=== PATIENT | female | born 1965 | race American Indian/Alaskan Native ===

== ENCOUNTER 2018-04-29 15:16 | Inpatient (IN) | payer OTHER ==
--- NOTE | 2018-04-29 15:27 | EDPD ---
HPI Stroke - General Time Seen by Provider: 04/29/18 15:20 Historian: Patient, EMS - History of Present Illness Narrative History of Present Illness (Free Text): 04/29/18 15:28 Patient is a 52 year old female whose past medical history includes CVA, who presents to the emergency department by EMS for possible seizure/stroke. EMS reports that the patient was last well at 14:30 today and was getting an EEG. At 15:00 she started visibly shaking, slurred speech, and right sided weakness. Patient reports that she subsequently couldn't walk. SHe normally walks with a cane. Neurologist: Dr.Vinod Purdy. Date:: 04/29/18 Onset:: Just prior to presenting Family/Social History - Family/Social History Family History: Non-Contributory Allergies/Home Meds Allergies/Adverse Reactions: Allergies No Known Allergies Allergy (Verified 04/29/18 15:28) Medical Decision Making ED Course and Treatment: Impression: Differential Diagnosis included but are not limited to: Plan: -- Reassess and disposition Prior Visits: Notes and results from previous visits were reviewed. Patient was last seen in the Emergency department on . Progress Notes: 04/29/18 15:31 - RAD Interpretation Radiology Orders: 04/29/18 15:21 CTA HEAD/NECK CODE STROKE [CT] Stat HEAD W/O (CODE STROKE) [CT] Stat CHEST PORTABLE [RAD] Stat - Medication Orders Current Medication Orders: Sodium Chloride (Sodium Chloride 0.9%) 1,000 mls @ 100 mls/hr IV .Q10H ROXANNA
[2018-04-29] MEDS ORDERED: Iohexol 350 MG/100 ML VIAL ONE (15:32)
--- NOTE | 2018-04-29 15:32 | CT ---
Date of service: 04/29/2018 PROCEDURE: CT HEAD WITHOUT CONTRAST. HISTORY: Code Stroke COMPARISON: None available. TECHNIQUE: Axial computed tomography images were obtained through the head/brain without intravenous contrast. Radiation dose: Total exam DLP = 870 mGy-cm. This CT exam was performed using one or more of the following dose reduction techniques: Automated exposure control, adjustment of the mA and/or kV according to patient size, and/or use of iterative reconstruction technique. FINDINGS: HEMORRHAGE: No intracranial hemorrhage. BRAIN: No mass effect or edema. No atrophy or chronic microvascular ischemic changes. VENTRICLES: Unremarkable. No hydrocephalus. CALVARIUM: Unremarkable. PARANASAL SINUSES: Unremarkable as visualized. No significant inflammatory changes. MASTOID AIR CELLS: Unremarkable as visualized. No inflammatory changes. OTHER FINDINGS: None. IMPRESSION: No acute findings
--- NOTE | 2018-04-29 15:43 | ED PDOC ---
Arrival/HPI - General Chief Complaint: Weakness/Neurological Deficit Time Seen by Provider: 04/29/18 15:20 Historian: Patient, EMS EM Caveat: Acuity of Condition - Critical Care Critical Care Minutes: 30 minutes Critical Care Time: Excluding Proc Time - History of Present Illness Narrative History of Present Illness (Text): 04/29/18 15:36 Patient is a 52 year old female whose past medical history includes CVA, who presents to the Emergency department by EMS for possible seizure/stroke. As per EMS patient was last well at 14:30 and was getting an EEG. At 15:00 she started visibly shaking and developing slurred speech and right sided weakness. Patient reports that she subsequently couldn't walk. She normally walks with a cane. Futher hx limited by slurred speech. Time/Duration: Prior to Arrival Symptom Onset: Sudden Past Medical History - Provider Review Nursing Documentation Reviewed: Yes - Infectious Disease Hx of Infectious Diseases: None - Neurological HX Cerebrovascular Accident: Yes Hx Seizures: Yes - Psychiatric Hx Substance Use: No Family/Social History - Physician Review Nursing Documentation Reviewed: Yes Family/Social History: No Known Family HX Smoking Status: Unknown If Ever Smoked Hx Alcohol Use: No Hx Substance Use: No Allergies/Home Meds Allergies/Adverse Reactions: Allergies No Known Allergies Allergy (Verified 04/29/18 16:03) Review of Systems - Review of Systems Systems not reviewed;Unavailable: Acuity of Condition Neurological: Speech Changes, Other (right sided weakness) Physical Exam Vital Signs Reviewed: Yes Vital Signs Temp Pulse Resp BP 04/29/18 17:00 98.8 F 82 22 133/90 04/29/18 16:46 99 F 79 22 154/75 H 04/29/18 16:30 99.4 F 84 20 157/80 H Temperature: Afebrile Blood Pressure: Hypertensive Pulse: Regular Respiratory Rate: Normal Appearance: Positive for: Well-Appearing Mental Status: Positive for: Alert and Oriented X 3 - Systems Exam Head: Present: Atraumatic, Normocephalic Pupils: Present: PERRL Extroacular Muscles: Present: EOMI Conjunctiva: Present: Normal Mouth: Present: Moist Mucous Membranes Neck: Present: Normal Range of Motion Respiratory/Chest: Present: Clear to Auscultation, Good Air Exchange. No: Respiratory Distress, Accessory Muscle Use Cardiovascular: Present: Regular Rate and Rhythm, Normal S1, S2. No: Murmurs Abdomen: No: Tenderness, Distention, Peritoneal Signs Back: Present: Normal Inspection Upper Extremity: Present: Normal Inspection, Normal ROM. No: Cyanosis, Edema Lower Extremity: Present: Other (Normal strength to left lower extremity. RLE: muscle twitch visible but cannot lift leg off stretcher.). No: Edema, Normal ROM Neurological: Present: GCS=15, Other (Left facial droop, slurred speech) Skin: Present: Warm, Dry, Normal Color. No: Rashes Psychiatric: Present: Alert, Oriented x 3, Normal Insight, Normal Concentration Medical Decision Making ED Course and Treatment: 04/29/18 15:27 Impression: Patient is a 52 year old female who was brought by EMS for stroke evaluation. Differential Diagnosis included but are not limited to: Plan: --CTA and Head CT --EKG -- Labs --cardiac enzymes --blood work --chest x-ray --IV fluids --Aspirin -- Reassess and disposition Progress Notes: 04/29/18 15:15 Patient immediately evalauted and code Stroke called. 04/29/18 15:18 Discussed case with , who is aware of patient and states that if it is a seizure then she isn't a TPA candidate. Requesting CT and CTA. 04/29/18 15:33 called and reports that patient was hooked up on EEG when she started developing symptoms of slurred speech and leg weakness and EEG findings don't show seizure. 04/29/18 16:[address] Edmond and due to aphasia and weakness, decision made to give TPA. Weakness to R leg improving but due to aphasia and droop, decision still made to give TPA 04/29/18 16:[address] without contrast: Creator : Liu Worthington MD HISTORY: Code Stroke COMPARISON: None available. TECHNIQUE: Axial computed tomography images were obtained through the head/brain without intravenous contrast. Radiation dose: Total exam DLP = 870 mGy-cm. This CT exam was performed using one or more of the following dose reduction techniques: Automated exposure control, adjustment of the mA and/or kV according to patient size, and/or use of iterative reconstruction technique. FINDINGS: HEMORRHAGE: No intracranial hemorrhage. BRAIN: No mass effect or edema. No atrophy or chronic microvascular ischemic changes. VENTRICLES: Unremarkable. No hydrocephalus. CALVARIUM: Unremarkable. PARANASAL SINUSES: Unremarkable as visualized. No significant inflammatory changes MASTOID AIR CELLS: Unremarkable as visualized. No inflammatory changes. OTHER FINDINGS: None. IMPRESSION: No acute findings Chest X-ray: Creator : Gary Duque MD HISTORY: Code Stroke COMPARISON: None available. FINDINGS: LUNGS: Clear. PLEURA:No pneumothorax or pleural fluid seen. CARDIOVASCULAR:Normal. OSSEOUS STRUCTURES: No significant abnormalities. VISUALIZED UPPER ABDOMEN: Normal. OTHER FINDINGS: None. IMPRESSION: No active disease. 04/29/18 CTA unable to be preformed due to IV access. Decision made with neurologist to administer TPA when IV access is obtained instead of sending her back for CTA. 04/29/18 16:51 EKG shows NSR at 78 bpm with LVH and nonspecific ST changes. Interpreted by me. 04/29/18 16:51 Location Director at bedside. 04/29/18 16:53 Patient accepted by hospitalist. - Lab Interpretations Lab Results: 04/29/18 14:30 04/29/18 14:30 Lab Results 04/29/18 14:30: Sodium 145, Potassium 4.2, Chloride 106, Carbon Dioxide 26, Anion Gap 18, BUN 13, Creatinine 0.9, Est GFR ( Amer) > 60, Est GFR (Non- Af Amer) > 60, Random Glucose 84, Calcium 9.3, Total Bilirubin 0.4, AST 29, ALT 31, Alkaline Phosphatase 99, Troponin I 0.01, Total Protein 8.0, Albumin 4.6, Globulin 3.5, Albumin/Globulin Ratio 1.3, Triglycerides 102, Cholesterol 130, LDL Cholesterol Direct 51, HDL Cholesterol 55 04/29/18 14:30: PT 11.4, INR 1.00, APTT 32.5 04/29/18 14:30: WBC 7.7, RBC 5.09, Hgb 12.7, Hct 39.3, MCV 77.2 L, MCH 25.0, MCHC 32.3, RDW 15.6 H, Plt Count 367, MPV 9.9, Gran % 53.7, Lymph % (Auto) 35.4 H, [place] % (Auto) 8.3 H, Eos % (Auto) 2.1, Baso % (Auto) 0.5, Gran # 4.12, Lymph # (Auto) 2.7, [place] # (Auto) 0.6, Eos # (Auto) 0.2, Baso # (Auto) 0.04 I have reviewed the lab results: Yes - RAD Interpretation Radiology Orders: 04/29/18 15:21 CTA HEAD/NECK CODE STROKE [CT] Stat HEAD W/O (CODE STROKE) [CT] Stat CHEST ONE VIEW [RAD] Stat 04/29/18 17:02 MRI CODE STROKE/CODE [place]ANDA [MRI] Stat Floral Designer: Radiologist - EKG Interpretation Interpreted by ED Physician: Yes Type: 12 lead EKG - Medication Orders Current Medication Orders: Sodium Chloride (Sodium Chloride 0.9%) 1,000 mls @ 100 mls/hr IV .Q10H ROXANNA Alteplase, Recombinant (Activase 100 Mg Inj) 81 mls @ 81 mls/hr IV ONCE ONE Stop: 04/29/18 17:29 Pantoprazole Sodium (Protonix Ec Tab) 40 mg PO 0600 ROXANNA Discontinued Medications Alteplase, Recombinant (Activase 100 Mg Inj) 9 mg IV ONCE ONE Stop: 04/29/18 16:16 Aspirin (Aspirin Supp) 300 mg RC STAT STA Stop: 04/29/18 15:42 Last Admin: 04/29/18 15:53 Dose: 300 mg MAR Pain/Vitals Document 04/29/18 15:53 LA (Rec: 04/29/18 15:53 JOSE EDUARDO [id number]) Pain Reassessment Is This A Pain ReAssessment? No Sleep Is patient sleeping during reassessment? No Presence of Pain Presence of Pain No NIHSS Scale ([place]) Time Performed: 15:47 - How Severe is the Stoke Baseline Level of Consciousness: 0=Alert LOC to Questions: 0=Both comments correct LOC to commands: 0=Obeys both correctly Best Gaze: 0=Normal Visual: 0=No visual loss Facial: 1=Minor asymmetry Motor Arm - Left: 0=No drift Motor Arm - Right: 0=No drift Motor Leg - Left: 0=No drift Motor Leg - Right: 3=No effort against gravity (falls immediately) Limb Ataxia: 0=Absent Sensory: 0=Normal Best Language: 1=Mild to moderate aphasia Dysarthia: 1=Mild to moderate slurring Extinction & Inattention (Neglect): 0=Normal, no object Score: 6 Risk Level: Mod Stroke Risk NIHSS Scale([place]) 2 Time Performed: 17:14 - How Severe is the Stoke Baseline Level of Consciousness: 0=Alert LOC to Questions: 0=Both comments correct LOC to commands: 0=Obeys both correctly Best Gaze: 0=Normal Visual: 0=No visual loss Facial: 1=Minor asymmetry Motor Arm - Left: 0=No drift Motor Arm - Right: 0=No drift Motor Leg - Left: 0=No drift Motor Leg - Right: 1=Drift before 5 sec Limb Ataxia: 0=Absent Sensory: 0=Normal Best Language: 1=Mild to moderate aphasia Dysarthia: 1=Mild to moderate slurring Extinction & Inattention (Neglect): 0=Normal, no object Score: 4 Risk Level: Minor Stroke Risk - Scribe Statement The provider has reviewed the documentation as recorded by the Scribsally Perry Provider Scribe Attestation: All medical record entries made by the Scribe were at my direction and personally dictated by me. I have reviewed the chart and agree that the record accurately reflects my personal performance of the history, physical exam, medical decision making, and the department course for this patient. I have also personally directed, reviewed, and agree with the discharge instructions and disposition. Disposition/Present on Arrival - Present on Arrival Any Indicators Present on Arrival: No History of DVT/PE: No History of Uncontrolled Diabetes: No Urinary Catheter: No History of Decub. Ulcer: No History Surgical Site Infection Following: None - Disposition Have Diagnosis and Disposition been Completed?: Yes Diagnosis: CVA (cerebral vascular accident) Disposition: HOSPITALIZED Disposition Time: 16:30 Patient Plan: Admission, ICU Patient Problems: Current Active Problems Problem Status Onset CVA (cerebral vascular accident) Acute Condition: FAIR Forms: [employer] (Member[employer]) ([place])
[2018-04-29 16:06] VITALS: BMI 41.8
--- NOTE | 2018-04-29 16:06 | RAD ---
Date of service: 04/29/2018 PROCEDURE: CHEST RADIOGRAPH, 1 VIEW HISTORY: Code Stroke COMPARISON: None available. FINDINGS: LUNGS: Clear. PLEURA: No pneumothorax or pleural fluid seen. CARDIOVASCULAR: Normal. OSSEOUS STRUCTURES: No significant abnormalities. VISUALIZED UPPER ABDOMEN: Normal. OTHER FINDINGS: None. IMPRESSION: No active disease.
--- NOTE | 2018-04-29 16:14 | CP.PCM.CON ---
History of Present Illness - History of Present Illness History of Present Illness: 52 yr old woman with pmh of epilepsy, on keppra 500 mg sadi is a patient of dr lopezoors comes in [facility] with one hour onset of dysarthria and right sided weakness that started about one hour ago at 2:30 pm. Miss reed was in dr fernando vargas and was obtaining an eeg when she developedan acute onset of dysarthria and weakness of her rogh side. Upon arrival bto the ER, symptoms continued. PMH PSH FH/SH ALL: Past Patient History - Infectious Disease Hx of Infectious Diseases: None - Past Social History Smoking Status: Unknown If Ever Smoked - NEUROLOGICAL HX Cerebrovascular Accident: Yes Hx Seizures: Yes - PSYCHIATRIC Hx Substance Use: No - SURGICAL HISTORY Hx Surgeries: No Meds Allergies/Adverse Reactions: Allergies Allergy/AdvReac Type Severity Reaction Status Date / Time No Known Allergies Allergy Verified 04/29/18 15:28 - Medications Medications: Current Medications Sodium Chloride (Sodium Chloride 0.9%) 1,000 mls @ 100 mls/hr IV .Q10H ROXANNA
[2018-04-29 16:15] LABS: BASO # 0.04 K/mm3 (0.0-2.0); BASO % 0.5 % (0.0-3.0); EOS # 0.2 (0.0-0.7); EOS % 2.1 % (1.5-5.0); GRAN # 4.12 (1.4-6.5); GRAN % 53.7 % (50.0-68.0); HEMOGLOBIN 12.7 g/dL (12.0-16.0); LYMPH # 2.7 (1.2-3.4); LYMPH % 35.4 % (22.0-35.0); MEAN CELL VOLUME 77.2 fl (80.0-105.0); MEAN CORPUSCULAR HGB CONC 32.3 g/dl (31.0-37.0); MEAN PLATELET VOLUME 9.9 fl (7.0-11.0); MONO # 0.6 (0.1-0.6); MONO % 8.3 % (1.0-6.0); RBC 5.09 10^6/uL (3.5-6.1); RED CELL DISTRIBUTION WIDTH 15.6 % (11.5-14.5); WHITE BLOOD COUNT 7.7 10^3/ul (4.5-11.0)
[2018-04-29 16:18] LABS: ALB/GLOB RATIO 1.3 (1.1-1.8); ALBUMIN 4.6 g/dL (3.0-4.8); ALT/SGPT 31 U/L (7-56); AST/SGOT 29 U/L (14-36); BLOOD UREA NITROGEN 13 mg/dL (7-21); CALCIUM 9.3 mg/dL (8.4-10.5); GFR AFRICAN-AMERICAN > 60; GFR NON-AFRICAN AMERICAN > 60; HDL CHOLESTEROL 55 mg/dL (29-60)
[2018-04-29 16:19] LABS: PARTIAL THROMBOPLASTIN TIME 32.5 Seconds (25.1-36.5); PROTHROMBIN TIME 11.4 SECONDS (9.4-12.5)
[2018-04-29 16:28] LABS: LDL CHOLESTEROL 51 mg/dL (0-129)
[2018-04-29] MEDS: Sodium Chloride 0.9% 1,000 ML IV SCH (16:30)
[2018-04-29 16:31] LABS: TROPONIN I 0.01 ng/mL
[2018-04-29] MEDS ORDERED: Vitamins A & D Oint UD Foilpak TOP PRN (17:16)
[2018-04-29] MEDS ORDERED: Albuterol-Ipratrop 3 mg / 0.5 (3 ml) UD IH PRN (17:16)
--- NOTE | 2018-04-29 17:31 | CP.PCM.CON ---
History of Present Illness - History of Present Illness History of Present Illness: MICU Consult Note HPI Patient is 52yo female with PMHx of morbid obesity, ANGIE, CVA/TIA, HTN, presented to the ER with acute onset of slurred speech, dysarthria, facial droop and RLE weakness, that started at [address] Restrepo office while obtaining an EEG. Pt currently receiving tPA. Pt denies fever, chills, cough, chest pain, palpitations, MCNEILL, dizziness, NO other constitutional symptoms. Previous history of CVA/TIA in the past without any residual weakness/deficits. PMHx as above PSHx as above Meds as per EMR FHx NC Social denies smoking, EtOH, drug use, unemployed. Review of Systems - Review of Systems Review of Systems: As per HPI Past Patient History - Infectious Disease Hx of Infectious Diseases: None - Past Social History Smoking Status: Unknown If Ever Smoked - NEUROLOGICAL HX Cerebrovascular Accident: Yes Hx Seizures: Yes - PSYCHIATRIC Hx Substance Use: No - SURGICAL HISTORY Hx Surgeries: No Meds Allergies/Adverse Reactions: Allergies Allergy/AdvReac Type Severity Reaction Status Date / Time No Known Allergies Allergy Verified 04/29/18 16:03 - Medications Medications: Current Medications Albuterol/Ipratropium (Duoneb 3 Mg/0.5 Mg (3 Ml) Ud) 3 ml IH Q2H PRN PRN Reason: Shortness of Breath Sodium Chloride (Sodium Chloride 0.9%) 1,000 mls @ 100 mls/hr IV .Q10H ROXANNA Alteplase, Recombinant (Activase 100 Mg Inj) 81 mls @ 81 mls/hr IV ONCE ONE Stop: 04/29/18 17:29 Levetiracetam (Keppra 500mg Ivpb) 500 mg in 100 mls @ 400 mls/hr IVPB Q12 ROXANNA Insulin Human Regular (Humulin R Low) 0 units SC ACHS ROXANNA PRN Reason: Protocol Pantoprazole Sodium (Protonix Inj) 40 mg IVP DAILY ROXANNA Vitamin A (Vitamin A & D Oint Ud Foilpak) 1 ea TOP Q2 PRN PRN Reason: Dry mouth Physical Exam - Constitutional Appears: Non-toxic, No Acute Distress - Head Exam Head Exam: NORMAL INSPECTION - Eye Exam Eye Exam: Normal appearance - ENT Exam ENT Exam: Mucous Membranes Moist - Respiratory Exam Respiratory Exam: Clear to Auscultation Bilateral, NORMAL BREATHING PATTERN - Cardiovascular Exam Cardiovascular Exam: REGULAR RHYTHM, +S1, +S2 - GI/Abdominal Exam GI & Abdominal Exam: Normal Bowel Sounds, Soft - Extremities Exam Extremities exam: Positive for: normal inspection - Neurological Exam Neurological exam: Alert, Oriented x3 Additional comments: Motor RUE/RLE 5/5, LLE 4/5, RLE 3/5 Sensory intact Results - Vital Signs Recent Vital Signs: Last Vital Signs Temp 99 F 04/29/18 17:15 Pulse 77 04/29/18 17:15 Resp 20 04/29/18 17:15 BP 132/89 04/29/18 17:15 Pulse Ox - Labs Result Diagrams: 04/29/18 14:30 04/29/18 14:30 Labs: Laboratory Results - last 24 hr 04/29/18 04/29/18 04/29/18 14:30 14:30 14:30 WBC 7.7 RBC 5.09 Hgb 12.7 Hct 39.3 MCV 77.2 L MCH 25.0 MCHC 32.3 RDW 15.6 H Plt Count 367 MPV 9.9 Gran % 53.7 Lymph % (Auto) 35.4 H [place] % (Auto) 8.3 H Eos % (Auto) 2.1 Baso % (Auto) 0.5 Gran # 4.12 Lymph # (Auto) 2.7 [place] # (Auto) 0.6 Eos # (Auto) 0.2 Baso # (Auto) 0.04 PT 11.4 INR 1.00 APTT 32.5 Sodium 145 Potassium 4.2 Chloride 106 Carbon Dioxide 26 Anion Gap 18 BUN 13 Creatinine 0.9 Est GFR ( Amer) > 60 Est GFR (Non-Af Amer) > 60 Random Glucose 84 Calcium 9.3 Total Bilirubin 0.4 AST 29 ALT 31 Alkaline Phosphatase 99 Troponin I 0.01 Total Protein 8.0 Albumin 4.6 Globulin 3.5 Albumin/Globulin Ratio 1.3 Triglycerides 102 Cholesterol 130 LDL Cholesterol Direct 51 HDL Cholesterol 55 Blood Type Antibody Screen BBK History Checked 04/29/18 14:30 WBC RBC Hgb Hct MCV MCH MCHC RDW Plt Count MPV Gran % Lymph % (Auto) [place] % (Auto) Eos % (Auto) Baso % (Auto) Gran # Lymph # (Auto) [place] # (Auto) Eos # (Auto) Baso # (Auto) PT INR APTT Sodium Potassium Chloride Carbon Dioxide Anion Gap BUN Creatinine Est GFR ( Amer) Est GFR (Non-Af Amer) Random Glucose Calcium Total Bilirubin AST ALT Alkaline Phosphatase Troponin I Total Protein Albumin Globulin Albumin/Globulin Ratio Triglycerides Cholesterol LDL Cholesterol Direct HDL Cholesterol Blood Type O POSITIVE Antibody Screen Negative BBK History Checked No verified bt Assessment & Plan - Assessment and Plan (Free Text) Assessment: 52yo female a/w acute CVA, receiving tPA Acute CVA receiving tPA ANGIE HTN Morbid Obesity Hx of CVA/TIA - awake, alert, in NAD, protecting airway Recommend: - supp o2 as needed, BIPAP at night - duonebs PRN - NO ID issues - BP control - NPO - speech swallow eval - ECHO - Lipid Panel, TSH, HgbA1C - neurology follow up - MRI brain - GI ppx - DVT ppx - Admit to MICU
--- NOTE | 2018-04-29 18:02 | CP.PCM.HP ---
<Mervin Caballero - Last Filed: 04/29/18 21:27> History of Present Illness - History of Present Illness History of Present Illness: CC: Right Sided Weakness/?CVA HPI: Ms. Preciado is a 52 year old female with a past medical history significant for previous CVA with residual RLE weakness, seizures, DM2, HTN, ANGIE , asthma, and vertigo who presented with right sided weakness, dysarthria and facial drooping that started at approximately 1430. Patient reports that she was in Dr. Purdy's office (Neurology) having an EEG when her entire body began "shaking". This lasted for a "few minutes" and afterwards patient was noted to have facial drooping on the right side and right lower extremity weakness worsened from her baseline. Patient denies any LOC or loss of bowl or bladder control during the event but endorses tongue biting. She denies any other symptoms including fever, chills, headache, changes in her vision, dysphagia, neck pain/stiffness, chest pain, palpitations, SOB, cough, wheezing, abdominal pain, N/V/D/C, melena, changes in urine output, skin changes, or any numbness/ tingling of any extremity. PMH: As stated above PSH: As stated above Family History: Non-Contributory Social History: Denies any tobacco, alcohol or illicit drug use Allergies: Penicillin Home Medications: As per MAR Present on Admission - Present on Admission Any Indicators Present on Admission: No Review of Systems - Review of Systems Review of Systems: As stated in the HPI, otherwise negative Past Patient History - Infectious Disease Hx of Infectious Diseases: None - Past Social History Smoking Status: Unknown If Ever Smoked - NEUROLOGICAL HX Cerebrovascular Accident: Yes Hx Seizures: Yes - PSYCHIATRIC Hx Substance Use: No - SURGICAL HISTORY Hx Surgeries: No Meds Allergies/Adverse Reactions: Allergies Allergy/AdvReac Type Severity Reaction Status Date / Time Penicillins Allergy Intermediate RASH Verified 09/23/17 07:01 Physical Exam - Constitutional Appears: Non-toxic, No Acute Distress - Head Exam Head Exam: ATRAUMATIC, NORMOCEPHALIC Additional comments: Right sided facial droop - Eye Exam Eye Exam: EOMI, Normal appearance, PERRL. absent: Conjunctival injection, Nystagmus, Periorbital swelling, Periorbital tenderness, Scleral icterus Pupil Exam: NORMAL ACCOMODATION, PERRL. absent: Fixed, Irregular, Miosis, Mydriatic, Unequal - ENT Exam ENT Exam: Mucous Membranes Moist, Normal External Ear Exam (Bilateral laceration on tongue consistent with ). absent: Mucous Membranes Dry, Normal Oropharynx - Neck Exam Neck exam: Positive for: Full Rom, Normal Inspection. Negative for: Lymphadenopathy, Meningismus, Tenderness, Thyromegaly - Respiratory Exam Respiratory Exam: Clear to Auscultation Bilateral, NORMAL BREATHING PATTERN. absent: Accessory Muscle Use, Chest Wall Tenderness, Decreased Breath Sounds, Prolonged Expiratory Phase, Rales, Rhonchi, Wheezes, Respiratory Distress, Stridor - Cardiovascular Exam Cardiovascular Exam: REGULAR RHYTHM, RRR, +S1, +S2. absent: Bradycardia, Tachycardia, Clicks, Diastolic murmur, Gallop, Irregular Rhythm, JVD, Rubs, +S4 , Systolic Murmur - GI/Abdominal Exam GI & Abdominal Exam: Normal Bowel Sounds, Soft. absent: Bruit, Diminished Bowel Sounds, Distended, Firm, Guarding, Hernia, Hyperactive Bowel Sounds, Hypoactive Bowel Sounds, Mass, Organomegaly, Pulsatile Mass, Rebound, Rigid, Tenderness - Extremities Exam Extremities exam: Positive for: normal capillary refill, pedal pulses present. Negative for: calf tenderness, full ROM (Decreased ROM in RLE), joint swelling, normal inspection, pedal edema, tenderness - Back Exam Back exam: FULL ROM, NORMAL INSPECTION. absent: CVA tenderness (L), CVA tenderness (R), muscle spasm, paraspinal tenderness, rash noted, tenderness, vertebral tenderness - Neurological Exam Neurological exam: Alert, Oriented x3 - Expanded Neurological Exam Expanded Patient oriented to: person, place, time Speech: Slurred Speech Cranial nerves: Facial Palsey w/Forehead Movement: Abnormal Right Neuro motor strength exam: Left Upper Extremity: 4, Right Upper Extremity: 4, Left Lower Extremity: 4, Right Lower Extremity: 2/1 - Psychiatric Exam Psychiatric exam: Normal Affect, Normal Mood - Skin Skin Exam: Dry, Intact, Normal Color, Warm Results - Vital Signs Recent Vital Signs: Last Vital Signs Temp 99 F 04/29/18 17:15 Pulse 77 04/29/18 17:15 Resp 20 04/29/18 17:15 BP 132/89 04/29/18 17:15 Pulse Ox - Labs Result Diagrams: 04/29/18 14:30 04/29/18 14:30 Labs: Laboratory Results - last 24 hr 04/29/18 04/29/18 04/29/18 14:30 14:30 14:30 WBC 7.7 RBC 5.09 Hgb 12.7 Hct 39.3 MCV 77.2 L MCH 25.0 MCHC 32.3 RDW 15.6 H Plt Count 367 MPV 9.9 Gran % 53.7 Lymph % (Auto) 35.4 H [place] % (Auto) 8.3 H Eos % (Auto) 2.1 Baso % (Auto) 0.5 Gran # 4.12 Lymph # (Auto) 2.7 [place] # (Auto) 0.6 Eos # (Auto) 0.2 Baso # (Auto) 0.04 PT 11.4 INR 1.00 APTT 32.5 Sodium 145 Potassium 4.2 Chloride 106 Carbon Dioxide 26 Anion Gap 18 BUN 13 Creatinine 0.9 Est GFR ( Amer) > 60 Est GFR (Non-Af Amer) > 60 Random Glucose 84 Calcium 9.3 Total Bilirubin 0.4 AST 29 ALT 31 Alkaline Phosphatase 99 Troponin I 0.01 Total Protein 8.0 Albumin 4.6 Globulin 3.5 Albumin/Globulin Ratio 1.3 Triglycerides 102 Cholesterol 130 LDL Cholesterol Direct 51 HDL Cholesterol 55 Blood Type Antibody Screen BBK History Checked 04/29/18 14:30 WBC RBC Hgb Hct MCV MCH MCHC RDW Plt Count MPV Gran % Lymph % (Auto) [place] % (Auto) Eos % (Auto) Baso % (Auto) Gran # Lymph # (Auto) [place] # (Auto) Eos # (Auto) Baso # (Auto) PT INR APTT Sodium Potassium Chloride Carbon Dioxide Anion Gap BUN Creatinine Est GFR ( Amer) Est GFR (Non-Af Amer) Random Glucose Calcium Total Bilirubin AST ALT Alkaline Phosphatase Troponin I Total Protein Albumin Globulin Albumin/Globulin Ratio Triglycerides Cholesterol LDL Cholesterol Direct HDL Cholesterol Blood Type O POSITIVE Antibody Screen Negative BBK History Checked No verified bt Assessment & Plan - Assessment and Plan (Free Text) Assessment: 52 year old female with a past medical history significant for previous CVA with residual RLE weakness, seizures, DM2, HTN, ANGIE, asthma, and vertigo who presented with right sided weakness, dysarthria and facial drooping that started at approximately 1430. Plan: 1. Dysarthria/?CVA -CT Head showed no intracranial abnormalities -Initial NIHSS score in ED: 3 -Given tPA in ED at approximately 1600 -CTA Head/Neck, Brain MRI and Echo pending -Swallow Study pending -NPO Diet -Fall and Aspiration precautions -ICU placement -Neurology and Cardiology consulted, all recommendations appreciated 2. History of Seizures -Keppra 500mg IV Q12 -Seizure precautions 3. History of DM2 -SSI-Low and Accuchecks Q6 -A1c pending 4. History of Asthma -Duonebs Q2 PRN GI Prophylaxis: Protonix DVT Prophylaxis: SCD's Patient seen and case discussed with attending, Dr. Jewell. Tien PGY2 - Date & Time Date: 04/29/18 Time: 21:38 <Yin Jewell - Last Filed: 04/30/18 08:44> Results - Vital Signs Recent Vital Signs: Last Vital Signs Temp 98.4 F 04/30/18 07:47 Pulse 69 04/30/18 07:47 Resp 16 04/30/18 07:47 BP 112/67 04/30/18 07:47 Pulse Ox 94 L 04/30/18 06:45 - Labs Result Diagrams: 04/29/18 14:30 04/29/18 14:30 Labs: Laboratory Results - last 24 hr 04/29/18 17:00 TSH 3rd Generation 5.38 H Attending/Attestation - Attestation I have personally seen and examined this patient.: Yes I have fully participated in the care of the patient.: Yes I have reviewed all pertinent clinical information: Yes Notes (Text): 04/30/18 08:40 Medical record note made by the resident after discussion with my direction and input after the patient was personally seen and examined by me. I have reviewed the chart and agree that the record accurately reflects by personal performance of the history, physical exam, data review, and medical decision-making, in the course for the patient. I have also personally directed the plan of care. 52 year old female with a past medical history significant for previous CVA with residual RLE weakness, seizures, DM2, HTN, ANGIE, asthma, and vertigo who presented with right sided weakness, dysarthria and facial drooping , patient was in her Neurologist office at that time.CT head was negative.Patient is getting TPA in ER.We will monitor Neuro check, will kepp patient NPO, we will get MRI of Brain, CTA of head and neck and Echo.We will hold antiplatelet for 24 hour. We will get speech and swallow evaluation.We will monitor blood pressure and blood sugars closely. Management plan was discussed in detail with patient. Education was provided.
[2018-04-29] MEDS: levETIRAcetam 500mg IVPB 500 MG/100 ML BAG IVPB SCH (21:20)
[2018-04-29] MEDS ORDERED: levETIRAcetam 500 MG in Sodium Chloride 0.9% 100 ML IV SCH (22:00)
[2018-04-29] MEDS ORDERED: Insulin Reg-LOW-Coverage SC SCH (22:00)
[2018-04-30] MEDS ORDERED: Pneumococcal 23-Valent Vaccine IM ONE (00:15)
[2018-04-30] MEDS: Sodium Chloride 0.9% 1,000 ML IV SCH ×2 (05:52→16:55)
[2018-04-30] MEDS ORDERED: Pantoprazole 40 mg EC Tab PO SCH (06:00)
[2018-04-30] MEDS: levETIRAcetam 500mg IVPB 500 MG/100 ML BAG IVPB SCH ×2 (09:30→21:14)
--- NOTE | 2018-04-30 09:40 | CP.PCM.PN ---
Subjective - Date & Time of Evaluation Date of Evaluation: 04/30/18 Time of Evaluation: 09:39 - Subjective Subjective: George Villatoro PGY 2 Neurology Progress Note for Dr. Ware Patient was seen and examined at bedside in ICU. she had MRI head/neck earlier this morning. She is unable to undergo CTA due to peripheral line issues per nursing staff. The patient states that her speech is getting better and that her motor skills are restored. Patient states that she had a CVA in 01/2017 and TIA in 04/2017 that left her with a right foot drop, but no other focal deficits. Her last seizure was in 01/2018, and she is on Keppra. She was in Dr. Purdy's office getting an EEG done when she felt her body shake and her jaw deviate to the right. she denied any preceding aura of headaches, lights, sounds or any other neurological symptoms. After EMS was called, she was moved to a chair and in the process noticed that her right leg was weak and could not support her, however, she states this felt different than her usual foot drop. Currently, she states she has a headache but denies any changes in hearing, dizziness, chest pain, shortness of breath, weakness. Objective - Vital Signs/Intake and Output Vital Signs (last 24 hours): Temp Pulse Resp BP Pulse Ox 98.4 F 69 16 112/67 94 L 04/30/18 07:47 04/30/18 07:47 04/30/18 07:47 04/30/18 07:47 04/30/18 06:45 Intake and Output: 04/30/18 04/30/18 06:59 18:59 Intake Total 1300 Output Total 400 Balance 900 - Medications Medications: Current Medications Acetaminophen (Tylenol 325mg Tab) 650 mg PO Q4H PRN PRN Reason: headache and pain Last Admin: 04/30/18 00:23 Dose: 650 mg Albuterol/Ipratropium (Duoneb 3 Mg/0.5 Mg (3 Ml) Ud) 3 ml IH Q2H PRN PRN Reason: Shortness of Breath Sodium Chloride (Sodium Chloride 0.9%) 1,000 mls @ 100 mls/hr IV .Q10H ROXANNA Last Admin: 04/30/18 05:52 Dose: 100 mls/hr Levetiracetam (Keppra 500mg Ivpb) 500 mg in 100 mls @ 400 mls/hr IVPB Q12 ROXANNA Last Admin: 04/30/18 09:30 Dose: 400 mls/hr Insulin Human Regular (Humulin R Low) 0 units SC Q6 ROXANNA PRN Reason: Protocol Last Admin: 04/30/18 00:00 Dose: Not Given Pantoprazole Sodium (Protonix Inj) 40 mg IVP DAILY [facility] Last Admin: 04/30/18 09:30 Dose: 40 mg Vitamin A (Vitamin A & D Oint Ud Foilpak) 1 ea TOP Q2 PRN PRN Reason: Dry mouth - Labs Labs: PT 11.4 SECONDS (9.4-12.5) 04/29/18 14:30 INR 1.00 04/29/18 14:30 APTT 32.5 Seconds (25.1-36.5) 04/29/18 14:30 - Constitutional Appears: Well, Non-toxic, No Acute Distress - Head Exam Head Exam: NORMAL INSPECTION - Eye Exam Eye Exam: EOMI, Normal appearance, PERRL - ENT Exam ENT Exam: Mucous Membranes Dry - Neck Exam Neck Exam: Full ROM, Normal Inspection - Respiratory Exam Respiratory Exam: NORMAL BREATHING PATTERN. absent: Rales, Rhonchi, Wheezes - Cardiovascular Exam Cardiovascular Exam: RRR, +S1, +S2 - GI/Abdominal Exam GI & Abdominal Exam: Soft. absent: Distended, Tenderness - Extremities Exam Extremities Exam: Full ROM, Normal Inspection. absent: Pedal Edema Additional comments: SCDs on b/l - Back Exam Back Exam: NORMAL INSPECTION - Neurological Exam Neurological Exam: Alert, Awake, CN II-XII Intact (grossly), Oriented x3. absent: Motor Sensory Deficit Neuro motor strength exam: Left Upper Extremity: 5, Right Upper Extremity: 5, Left Lower Extremity: 5, Right Lower Extremity: 5 (plantarflexion 0/5; dorsiflexion 4/5) Additional comments: no dysmetria noted dysarthria noted, but improved from prior exam - Psychiatric Exam Psychiatric exam: Normal Mood - Skin Skin Exam: Warm Assessment and Plan - Assessment and Plan (Free Text) Assessment: 52 year old female with a PMH of CVA/TIA (2016) with residual R foot drop, seizures (last in 01/2018), morbid obesity, HTN, ANGIE, asthma, and vertigo who presented with right sided weakness, dysarthria and facial drooping that started around 1430 while patient was at her neurologist's office for EEG. CODE STROKE was called, and patient underwent CT Head that showed no acute findings or evidence of bleed. Decision was made to administer tPA (90mg total), and infusion was started at around 1630. Patient was monitored overnight in ICU with no neurological changes noted. Patient is under bleeding precautions with strictly no IV draws, tubes, or line placement for 24 hrs; antiplatelets are also to be avoided. Plan: Acute CVA s/p tPA, symptoms improving - MRI head done today showing no acute intracranial abnormality. No evidence of an acute or early subacute infarction. Mild chronic microangiopathic changes. Mild cerebellar tonsillar ectopia. - MRA neck showed normal MR Angiography of the neck. - CT Head today at 1630 to f/u tPA transfusion to make sure no bleeding - continue bleeding precautions w/ no IV sticks, lines/tube placement until 1630 - avoid antiplatelet use - Speech & Swallow eval pending - PT/OT - NPO Diet - Fall and Aspiration precautions - ICU placement w/ monitoring of vitals and neurochecks q1 hr till 1630 - Echo pending - Lipid panel and A1c show no evidence of good glycemic and lipid control - PTX/SCDs Hx Seizures - seizure precautions - cont Keppra 500mg IV q12 Further recs per Dr. Ware Case was reviewed and discussed with attending, Dr. Ware
--- NOTE | 2018-04-30 09:48 | MRI ---
Date of service: 04/30/2018 PROCEDURE: MRI BRAIN WITHOUT CONTRAST HISTORY: stroke COMPARISON: Noncontrast head CT from 04/29/2018. TECHNIQUE: Multiplanar, multisequence MR images of the brain were obtained without intravenous contrast enhancement. FINDINGS: HEMORRHAGE: None DWI: No evidence of an acute or early subacute infarction. BRAIN PARENCHYMA: There are mild chronic microangiopathic changes. There is no mass, mass effect or abnormal extra-axial fluid collection. There is no territorial infarction. There is mild cerebellar tonsillar ectopia. There is a partially empty sella. VENTRICLES: The ventricles are normal in size, shape and configuration. CRANIUM: There is normal bone marrow signal pattern. ORBITS: Grossly unremarkable. PARANASAL SINUSES/MASTOIDS: Predominantly clear. VASCULAR SYSTEM: There are normal signal voids in the larger intracranial arteries. OTHER FINDINGS: None. IMPRESSION: No acute intracranial abnormality. Mild chronic microangiopathic changes. Mild cerebellar tonsillar ectopia.
--- NOTE | 2018-04-30 09:51 | MRI ---
Date of service: 04/30/2018 PROCEDURE: MR Angiography of the neck without contrast HISTORY: CVA COMPARISON: None available. TECHNIQUE: 3D [id number] angiography of the neck was performed. Rotating maximum intensity projection images of the cervical carotid and vertebral arteries were generated. The origins of the common carotid arteries were not visualized, which is a limitation inherent to the non-contrast time of flight technique. FINDINGS: RIGHT CAROTID ARTERIES: Common Carotid Artery: Normal. Carotid Bifurcation: Normal. Internal Carotid Artery:Normal. External Carotid Artery (proximal branches): Normal. LEFT CAROTID ARTERIES: Common Carotid Artery: Normal. Carotid Bifurcation: Normal. Internal Carotid Artery:Normal. External Carotid Artery (proximal branches): Normal. VERTEBRAL ARTERIES: Right Vertebral Artery: Normal. Left Vertebral Artery: Normal. OTHER FINDINGS: None. IMPRESSION: Normal MR Angiography of the neck.
--- NOTE | 2018-04-30 10:42 | CP.CCUPN ---
<AndressaAlvarez - Last Filed: 04/30/18 10:39> CCU Subjective - Physician Review Events Since Last Encounter (Free Text): Alvarez Crisostomo, PGY-1 ICU Progress Note Patient seen and examined at bedside this morning. No acute overnight events. Patient's neurological status is currently at baseline with chronic dysarthria from previous history of CVA. Will transfer at 24 hours post tPA (approximately 5pm today) if stable and per neurology/cardiology recommendations. Patient denies any complaints at this time except for chronic unchanged headache. Denies CP, SOB, abdominal pain, urinary complaints, muscle weakness, numbness or tingling and back pain. 12 point ROS noted here, otherwise negative. CCU Objective - Vital Signs / Intake & Output Vital Signs (Last 4 hours): Vital Signs Temp Pulse Resp BP Pulse Ox 04/30/18 09:47 97.8 F 69 12 127/71 04/30/18 09:31 72 23 113/81 96 04/30/18 09:17 77 24 108/69 95 04/30/18 09:15 74 27 H 04/30/18 08:47 97.8 F 76 25 H 108/69 04/30/18 08:00 72 23 115/73 98 04/30/18 07:47 98.4 F 69 16 112/67 04/30/18 07:45 63 21 112/67 97 04/30/18 07:30 78 22 127/63 97 04/30/18 07:15 73 115/78 95 04/30/18 07:00 110/62 04/30/18 06:59 62 18 95 04/30/18 06:47 62 20 106/62 04/30/18 06:45 78 21 106/62 94 L Intake and Output (Last 8hrs): Intake & Output 04/29/18 04/30/18 04/30/18 22:59 06:59 14:59 Intake Total 1300 Output Total 400 Balance 900 Weight 251 lb 260 lb 8 oz Intake: IV 1200 Left Upper arm 1200 Oral 100 Output: Urine 400 Urine, Voided 400 Other: Voiding Method Toilet - Physical Exam Head: Positive for: Atraumatic, Normocephalic Pupils: Positive for: PERRL Extroacular Muscles: Positive for: EOMI Conjunctiva: Positive for: Normal Mouth: Positive for: Moist Mucous Membranes Neck: Positive for: Normal Range of Motion Respiratory/Chest: Positive for: Clear to Auscultation, Good Air Exchange. Negative for: Respiratory Distress, Accessory Muscle Use Cardiovascular: Positive for: Regular Rate and Rhythm, Normal S1, S2. Negative for: Murmurs Abdomen: Positive for: Normal Bowel Sounds. Negative for: Tenderness, Distention, Peritoneal Signs Back: Positive for: Normal Inspection Upper Extremity: Positive for: Normal Inspection, Normal ROM. Negative for: Cyanosis, Edema Lower Extremity: Positive for: Other (can lift lower extremities with muscle strenfth testing 5/5 B/L of LE). Negative for: Edema, Normal ROM Neurological: Positive for: GCS=15, Other (residual chronic Left facial droop, slurred speech) Skin: Positive for: Warm, Dry, Normal Color. Negative for: Rashes Psychiatric: Positive for: Alert, Oriented x 3, Normal Insight, Normal Concentration - Medications Active Medications: Active Medications Generic Name Dose Route Start Last Admin Trade Name Freq PRN Reason Stop Dose Admin Acetaminophen 650 mg 04/30/18 00:15 04/30/18 00:23 Tylenol 325mg Tab PO 650 mg Q4H PRN Administration headache and pain Albuterol/Ipratropium 3 ml 04/29/18 17:16 Duoneb 3 Mg/0.5 Mg (3 Ml) Ud IH Q2H PRN Shortness of Breath Sodium Chloride 1,000 mls @ 100 mls/hr 04/29/18 15:30 04/30/18 05:52 Sodium Chloride 0.9% IV 100 mls/hr .Q10H ROXANNA Administration Levetiracetam 500 mg in 100 mls @ 400 mls/hr 04/29/18 22:00 04/30/18 09:30 Keppra 500mg Ivpb IVPB 400 mls/hr Q12 ROXANNA Administration Insulin Human Regular 0 units 04/30/18 00:00 04/30/18 00:00 Humulin R Low SC Not Given Q6 ROXANNA Protocol Pantoprazole Sodium 40 mg 04/30/18 10:00 04/30/18 09:30 Protonix Inj IVP 40 mg DAILY ROXANNA Administration Vitamin A 1 ea 04/29/18 17:16 Vitamin A & D Oint Ud Foilpak TOP Q2 PRN Dry mouth - Patient Studies Lab Studies: Lab Studies 04/29/18 Range/Units 17:00 TSH 3rd Generation 5.38 H (0.46-4.68) mIU/mL Laboratory Results - last 24 hr 04/29/18 17:00 TSH 3rd Generation 5.38 H Fingerstick Blood Sugar Results: 90 Critical Care Progress Note - Nutrition Nutrition: Nutrition Category Date Time Status NPO Diet [DIET] Diets 04/29/18 Dinner Ordered Assessment/Plan - Assessment and Plan (Free Text) Assessment: Assessment: This is a 52 year old female with PMH od previous CVA with RLE residual weakness, history of seizure on keppra, DM2, HTN, ANGIE, asthma and vertigo presenting to ICU for management of CVA s/p tPA vs Wu's paralysis vs history of seizure. Will transfer at 24 hours post tPA (approximately 5pm today ) if stable and per neurology/cardiology recommendations. Plan: Neuro: -maintain normothermia -AAO x3, moving extremities spontaneously past midline. Has chronic residual slurred speech; back to baseline neurologically -Head CT 04/29: no acute findings -MRI head today shows no acute intracranial abnormality, mild chronic microangiopathic changes, mild cerebellar tonsillar ectopia -Neck MRA: Normal MR angiography of neck -on keppra 500 IV Q12 -swallow study -NIHSS stroke scale in ED was 3 -Neurology on consult, Dr Purdy Cardio: -maintain MAP>65 -duonebs prn -HR and BP noted, reviewed and trended. Overnight HR 60-80 and BP 100-120/50- 60. -will monitor vitals including HR and BP closely -echo pending -cardiology on consult, Dr. Lowery Lungs: -SaO2 >90% -supplementary O2 PRN -CXR: no active disease Renal: -maintain euvolemia -avoid nephrotoxic agents, hypochloremia -replace electrolytes as needed Heme: -Bleeding precautions with no IV sticks and line placement until 5pm -avoid anti platelet use -received tPA in ED yesterday -PT/INR yesterday was 11.4/1 -SCD Endo: -maintain euglycemia -on insulin human regular ID: -WBC WNL yesterday. CBC pending for today. Currently afebrile. No concern at this time GI: -NPO diet -GI prophylaxis with protonix <Ronni Mittal - Last Filed: 04/30/18 12:08> CCU Objective - Vital Signs / Intake & Output Vital Signs (Last 4 hours): Vital Signs Temp Pulse Resp BP Pulse Ox 04/30/18 09:47 97.8 F 69 12 127/71 04/30/18 09:31 72 23 113/81 96 04/30/18 09:17 77 24 108/69 95 04/30/18 09:15 74 27 H 04/30/18 08:47 97.8 F 76 25 H 108/69 Intake and Output (Last 8hrs): Intake & Output 04/29/18 04/30/18 04/30/18 22:59 06:59 14:59 Intake Total 1300 Output Total 400 Balance 900 Weight 251 lb 260 lb 8 oz Intake: IV 1200 Left Upper arm 1200 Oral 100 Output: Urine 400 Urine, Voided 400 Other: Voiding Method Toilet - Medications Active Medications: Active Medications Generic Name Dose Route Start Last Admin Trade Name Freq PRN Reason Stop Dose Admin Acetaminophen 650 mg 04/30/18 00:15 04/30/18 00:23 Tylenol 325mg Tab PO 650 mg Q4H PRN Administration headache and pain Albuterol/Ipratropium 3 ml 04/29/18 17:16 Duoneb 3 Mg/0.5 Mg (3 Ml) Ud IH Q2H PRN Shortness of Breath Aspirin 81 mg 04/30/18 19:30 Ecotrin PO DAILY ROXANNA Sodium Chloride 1,000 mls @ 100 mls/hr 04/29/18 15:30 04/30/18 05:52 Sodium Chloride 0.9% IV 100 mls/hr .Q10H ROXANNA Administration Levetiracetam 500 mg in 100 mls @ 400 mls/hr 04/29/18 22:00 04/30/18 09:30 Keppra 500mg Ivpb IVPB 400 mls/hr Q12 ORXANNA Administration Insulin Human Regular 0 units 04/30/18 00:00 04/30/18 00:00 Humulin R Low SC Not Given Q6 ROXANNA Protocol Pantoprazole Sodium 40 mg 04/30/18 10:00 04/30/18 09:30 Protonix Inj IVP 40 mg DAILY ROXANNA Administration Vitamin A 1 ea 04/29/18 17:16 Vitamin A & D Oint Ud Foilpak TOP Q2 PRN Dry mouth - Patient Studies Lab Studies: Lab Studies 04/29/18 Range/Units 17:00 TSH 3rd Generation 5.38 H (0.46-4.68) mIU/mL Laboratory Results - last 24 hr 04/29/18 17:00 TSH 3rd Generation 5.38 H Critical Care Progress Note - Nutrition Nutrition: Nutrition Category Date Time Status NPO Diet [DIET] Diets 04/29/18 Dinner Ordered Assessment/Plan - Assessment and Plan (Free Text) Assessment: Patient seen and examined on rounds, agree with note with following additions/ exceptions: Patient is 52yo female w/PMH of previous CVA with RLE residual weakness, history of seizure on keppra, DM2, HTN, ANGIE, asthma and vertigo admitted to ICU for management of CVA s/p tPA. Currently afebrile, BP stable, comfortable in NAD. Labs, imaging, chart reviewed MRI Brain MRA neck done Neuro following ASA, Statin BP control ECHO Q1hr neuro checks for 24hr follow up Neuro monitor for bleeding GI ppx Monitor in MICU
[2018-04-30] MEDS: Insulin Reg-LOW-Coverage SC SCH ×3 (12:57→19:05)
--- NOTE | 2018-04-30 15:13 | CARD ---
APPROVED REPORT Date of service: 04/29/2018 EKG Measurement Heart [id number] MN 150P40 [id number] <Conclusion> Normal sinus rhythm Minimal voltage criteria for LVH, may be normal variant Nonspecific T wave abnormality Abnormal ECG
--- NOTE | 2018-04-30 17:08 | CT ---
Date of service: 04/30/2018 PROCEDURE: CT HEAD WITHOUT CONTRAST. HISTORY: CODE STROKE f/u tPA COMPARISON: 04/29/2018 TECHNIQUE: Axial computed tomography images were obtained through the head/brain without intravenous contrast. Radiation dose: Total exam DLP = 821.56 mGy-cm. This CT exam was performed using one or more of the following dose reduction techniques: Automated exposure control, adjustment of the mA and/or kV according to patient size, and/or use of iterative reconstruction technique. FINDINGS: HEMORRHAGE: No intracranial hemorrhage. BRAIN: No mass effect or edema. No atrophy or chronic microvascular ischemic changes. VENTRICLES: Unremarkable. No hydrocephalus. CALVARIUM: Unremarkable. PARANASAL SINUSES: Unremarkable as visualized. No significant inflammatory changes. MASTOID AIR CELLS: Unremarkable as visualized. No inflammatory changes. OTHER FINDINGS: None. IMPRESSION: No intracranial hemorrhage. No evidence of acute infarct. Unremarkable examination.
--- NOTE | 2018-04-30 17:10 | CP.PCM.PN ---
<Nael Orozco - Last Filed: 04/30/18 19:44> Subjective - Date & Time of Evaluation Date of Evaluation: 04/30/18 Time of Evaluation: 09:00 - Subjective Subjective: Nael Orozco PGY-1 Progress Note for Hospitalist Service Patient seen and evaluated at bedside. Patient denies any acute events this morning. Patient admits to some headaches but denies chest pain, palpitations, shortness of breath, blurry vision, abdominal pain, confusion, and changes in urinary or bowel habits. Objective - Vital Signs/Intake and Output Vital Signs (last 24 hours): Temp Pulse Resp BP Pulse Ox 98.5 F 57 L 21 120/65 96 04/30/18 16:47 04/30/18 16:47 04/30/18 16:47 04/30/18 16:47 04/30/18 09:31 Intake and Output: 04/30/18 04/30/18 06:59 18:59 Intake Total 1300 Output Total 400 Balance 900 - Medications Medications: Current Medications Acetaminophen (Tylenol 325mg Tab) 650 mg PO Q4H PRN PRN Reason: headache and pain Last Admin: 04/30/18 14:01 Dose: 650 mg Albuterol/Ipratropium (Duoneb 3 Mg/0.5 Mg (3 Ml) Ud) 3 ml IH Q2H PRN PRN Reason: Shortness of Breath Sodium Chloride (Sodium Chloride 0.9%) 1,000 mls @ 100 mls/hr IV .Q10H [facility] Last Admin: 04/30/18 16:55 Dose: 100 mls/hr Levetiracetam (Keppra 500mg Ivpb) 500 mg in 100 mls @ 400 mls/hr IVPB Q12 [facility] Last Admin: 04/30/18 09:30 Dose: 400 mls/hr Insulin Human Regular (Humulin R Low) 0 units SC Q6 [facility] PRN Reason: Protocol Last Admin: 04/30/18 12:57 Dose: Not Given Pantoprazole Sodium (Protonix Inj) 40 mg IVP DAILY [facility] Last Admin: 04/30/18 09:30 Dose: 40 mg Vitamin A (Vitamin A & D Oint Ud Foilpak) 1 ea TOP Q2 PRN PRN Reason: Dry mouth - Labs Labs: PT 11.4 SECONDS (9.4-12.5) 04/29/18 14:30 INR 1.00 04/29/18 14:30 APTT 32.5 Seconds (25.1-36.5) 04/29/18 14:30 Physical Exam - Constitutional Appears: Non-toxic, No Acute Distress - Head Exam Head Exam: ATRAUMATIC, NORMOCEPHALIC Additional comments: Right sided facial droop - Eye Exam Eye Exam: EOMI, Normal appearance, PERRL. absent: Conjunctival injection, Nystagmus, Periorbital swelling, Periorbital tenderness, Scleral icterus Pupil Exam: NORMAL ACCOMODATION, PERRL. absent: Fixed, Irregular, Miosis, Mydriatic, Unequal - ENT Exam ENT Exam: Mucous Membranes Moist, Normal External Ear Exam. absent: Mucous Membranes Dry, Normal Oropharynx - Neck Exam Neck exam: Positive for: Full Rom, Normal Inspection. Negative for: Lymphadenopathy, Meningismus, Tenderness, Thyromegaly - Respiratory Exam Respiratory Exam: Clear to Auscultation Bilateral, NORMAL BREATHING PATTERN. absent: Accessory Muscle Use, Chest Wall Tenderness, Decreased Breath Sounds, Prolonged Expiratory Phase, Rales, Rhonchi, Wheezes, Respiratory Distress, Stridor - Cardiovascular Exam Cardiovascular Exam: REGULAR RHYTHM, RRR, +S1, +S2. absent: Bradycardia, Tachycardia, Clicks, Diastolic murmur, Gallop, Irregular Rhythm, JVD, Rubs, +S4 , Systolic Murmur - GI/Abdominal Exam GI & Abdominal Exam: Normal Bowel Sounds, Soft. absent: Bruit, Diminished Bowel Sounds, Distended, Firm, Guarding, Hernia, Hyperactive Bowel Sounds, Hypoactive Bowel Sounds, Mass, Organomegaly, Pulsatile Mass, Rebound, Rigid, Tenderness - Extremities Exam Extremities exam: Decreased ROM in RLE, but could bring leg past midline. Diffiulty lifting.Positive for: normal capillary refill, pedal pulses present. Negative for: calf tenderness, joint swelling, normal inspection, pedal edema, tenderness - Back Exam Back exam: FULL ROM, NORMAL INSPECTION. absent: CVA tenderness (L), CVA tenderness (R), muscle spasm, paraspinal tenderness, rash noted, tenderness, vertebral tenderness - Neurological Exam Neurological exam: Alert, Oriented x3 - Expanded Neurological Exam Expanded Patient oriented to: person, place, time, situation Speech: Slurred Speech, retained use of both sides of mouth Cranial nerves: Facial Palsy w/Forehead Movement: Abnormal Right Neuro motor strength exam: Left Upper Extremity: 4, Right Upper Extremity: 4, Left Lower Extremity: 4, Right Lower Extremity: 2 Sensation intact in UE and LE bilaterally - Psychiatric Exam Psychiatric exam: Normal Affect, Normal Mood - Skin Skin Exam: Dry, Intact, Normal Color, Warm Assessment and Plan - Assessment and Plan (Free Text) Assessment: Assessment: 52 year old female with a past medical history significant for previous CVA with residual RLE weakness, seizures, DM2, HTN, ANGIE, asthma, and vertigo who presented with right sided weakness, dysarthria and facial drooping that started yesterday afternoon. Plan: 1. Dysarthria vs CVA - Initial CT Head showed no intracranial abnormalities - CXR showed no active disease - Initial NIHSS score in ED: 3 - Given tPA in ED 04/29 - MRA Neck normal - Brain MRI showed no acute abnormality. Mild chronic microangiopathic changes along with mild cerebellar tonsillar ectopia - Repeat Head CT showed no evidence of acute infarct - Swallow Study pending - NPO Diet and meds on hold pending swallow and speech eval for advancement of diet - NS @ 100 cc/hr - Fall, bleed and Aspiration precautions - ICU placement - Neurology and Cardiology consulted, all recommendations appreciated - f/u pending Echo w bubble study 2. History of Seizures - Keppra 500mg IV Q12 - Seizure precautions 3. History of DM2 -SSI-Low and Accuchecks Q6 - A1c 5.8 - lipid panel wnl 4. History of Asthma -Duonebs Q2 PRN GI Prophylaxis: Protonix IVP DVT Prophylaxis: SCD's Patient seen and case discussed with attending, Dr. Jewell. Tien PGY2 <Yin Jewell - Last Filed: 05/02/18 13:02> Objective - Vital Signs/Intake and Output Vital Signs (last 24 hours): Temp Pulse Resp BP Pulse Ox 98.3 F 58 L 21 126/72 96 05/01/18 20:00 05/02/18 10:15 05/02/18 08:29 05/02/18 10:15 05/02/18 08:29 Intake and Output: 05/02/18 05/02/18 06:59 18:59 Output Total 1200 Balance -1200 - Medications Medications: Current Medications Acetaminophen (Tylenol 325mg Tab) 650 mg PO Q4H PRN PRN Reason: headache and pain Last Admin: 05/02/18 05:58 Dose: 650 mg Albuterol/Ipratropium (Duoneb 3 Mg/0.5 Mg (3 Ml) Ud) 3 ml IH Q2H PRN PRN Reason: Shortness of Breath Amlodipine Besylate (Norvasc) 5 mg PO DAILY [facility] Last Admin: 05/02/18 10:13 Dose: 5 mg Aspirin (Aspirin Chewable) 81 mg PO DAILY [facility] Last Admin: 05/02/18 10:12 Dose: 81 mg Atorvastatin Calcium (Lipitor) 40 mg PO DAILY [facility] Last Admin: 05/02/18 10:12 Dose: 40 mg Carvedilol (Coreg) 6.25 mg PO BID [facility] Last Admin: 05/02/18 10:15 Dose: 6.25 mg Cholecalciferol (Vitamin D) 1,000 intlu PO DAILY [facility] Last Admin: 05/02/18 10:13 Dose: 1,000 intlu Clopidogrel Bisulfate (Plavix) 75 mg PO DAILY [facility] Last Admin: 05/02/18 10:13 Dose: 75 mg Hydrochlorothiazide (Hydrodiuril) 25 mg PO DAILY [facility] Last Admin: 05/02/18 10:12 Dose: 25 mg Insulin Human Regular (Humulin R Low) 0 units SC ACHS [facility] PRN Reason: Protocol Last Admin: 05/01/18 14:08 Dose: Not Given Levetiracetam (Keppra) 500 mg PO BID [facility] Last Admin: 05/02/18 10:12 Dose: 500 mg Losartan Potassium (Cozaar) 100 mg PO DAILY [facility] Last Admin: 05/02/18 11:01 Dose: 100 mg Meclizine HCl (Antivert) 25 mg PO TID [facility] Last Admin: 05/02/18 10:15 Dose: 25 mg Pantoprazole Sodium (Protonix Ec Tab) 40 mg PO 0600 [facility] Last Admin: 05/02/18 06:01 Dose: 40 mg Vitamin A (Vitamin A & D Oint Ud Foilpak) 1 ea TOP Q2 PRN PRN Reason: Dry mouth - Labs Labs: 05/02/18 05:00 05/02/18 05:00 PT 11.4 SECONDS (9.4-12.5) 04/29/18 14:30 INR 1.00 04/29/18 14:30 APTT 32.5 Seconds (25.1-36.5) 04/29/18 14:30 Attending/Attestation - Attestation I have personally seen and examined this patient.: Yes I have fully participated in the care of the patient.: Yes I have reviewed all pertinent clinical information, including history, physical exam and plan: Yes Notes (Text): 05/02/18 12:57 Medical record note made by the resident after discussion with my direction and input after the patient was personally seen and examined by me. I have reviewed the chart and agree that the record accurately reflects by personal performance of the history, physical exam, data review, and medical decision-making, in the course for the patient. I have also personally directed the plan of care. 52 year old female with PMH of significant for previous CVA with residual Right Lower extremity weakness, seizure disorder, DM2, HTN, ANGIE, asthma, and vertigo was admitted with worsening of right lower extremity weakness and dysarthria , patient was in her Neurologist office at that time.CT head was negative.Patient is SP TPA, Patient is still having dysarthia today but better than before.Right leg weakness is 2/5 unchanged.MRI of brain today is negative for acute infarct.Antiplatelet medications will be restarted 24 hour after TPA. Blood pressure is stable. We will follow up Echo Management plan was discussed in detail with patient. Education was provided.
[2018-04-30 18:24] LABS: BASO # 0.01 K/mm3 (0.0-2.0); BASO % 0.2 % (0.0-3.0); EOS # 0.1 (0.0-0.7); EOS % 1.9 % (1.5-5.0); GRAN # 3.23 (1.4-6.5); GRAN % 56.9 % (50.0-68.0); HEMOGLOBIN 10.8 g/dL (12.0-16.0); LYMPH # 1.9 (1.2-3.4); LYMPH % 32.9 % (22.0-35.0); MEAN CELL VOLUME 77.2 fl (80.0-105.0); MEAN CORPUSCULAR HEMOGLOBIN 25.1 pg (25.0-35.0); MEAN CORPUSCULAR HGB CONC 32.5 g/dl (31.0-37.0); MEAN PLATELET VOLUME 9.9 fl (7.0-11.0); MONO # 0.5 (0.1-0.6); MONO % 8.1 % (1.0-6.0); RBC 4.3 10^6/uL (3.5-6.1); RED CELL DISTRIBUTION WIDTH 15.6 % (11.5-14.5); WHITE BLOOD COUNT 5.7 10^3/ul (4.5-11.0)
[2018-04-30 18:38] LABS: ALB/GLOB RATIO 1.3 (1.1-1.8); ALBUMIN 3.4 g/dL (3.0-4.8); ALT/SGPT 22 U/L (7-56); AST/SGOT 21 U/L (14-36); BLOOD UREA NITROGEN 8 mg/dL (7-21); CALCIUM 8.5 mg/dL (8.4-10.5); GFR AFRICAN-AMERICAN > 60; GFR NON-AFRICAN AMERICAN > 60; HDL CHOLESTEROL 39 mg/dL (29-60)
[2018-04-30 18:44] LABS: LDL CHOLESTEROL 45 mg/dL (0-129)
[2018-04-30 18:49] LABS: FREE T4 0.99 ng/dL (0.78-2.19)
--- NOTE | 2018-05-01 04:11 | CON ---
Copied To: Yin Lowery MD Attending MD: Yin Lowery MD DATE: 04/30/2018 REASON FOR CONSULTATION: Acute CVA, right-sided weakness, cardiac evaluation. BRIEF CLINICAL HISTORY: This is a 52-year-old female with past medical history significant for CVA with residual right-sided weakness, diabetes, hypertension, hyperlipidemia, obesity, obstructive sleep apnea, COPD, vertigo, asthma with dysarthria, and who was in Dr. Purdy's office, neurologist, having EEG; the patient suddenly started shaking, became dysarthric, ambulance was called, and patient was transferred to [facility], where the patient got initial TPA and now currently the patient is in ICU, being monitored, 129, bed 1. Denies any chest pain, denies any shortness of breath, denies any palpitation, but significantly dysarthric and complains of right-sided weakness. PAST MEDICAL HISTORY: Significant for diabetes, hypertension, hyperlipidemia, morbid obesity, history of CVA with right-sided weakness. FAMILY HISTORY: Noncontributory. SOCIAL HISTORY: Denies any smoking. Denies any history of alcohol abuse. ALLERGIES: ALLERGY TO PENICILLIN. CURRENT MEDICATIONS: The patient at home was taking Glucophage 500 mg daily, aspirin 81 mg daily, Flexeril 5 mg daily, meclizine 25 mg three times a day, Plavix 75 mg daily, amlodipine 5 mg daily, losartan one tablet daily, Coreg 6.25 mg daily, nitroglycerin meloxicam 40 mg daily, and atorvastatin 40 mg daily. REVIEW OF SYSTEMS: As per HPI. PHYSICAL EXAMINATION: VITAL SIGNS: As follows, height of the patient 5 feet 5 inches, weight of the patient is 260 pounds, body mass index 43.3 kg/m2. Rest of the vitals, temperature afebrile, heart rate 57, blood pressure 120/65. HEENT: PERRLA. Extraocular muscles intact. NECK: Supple. No carotid bruits or thyromegaly. CHEST: Clear to auscultation. HEART: S1 and S2 regular. ABDOMEN: Soft. EXTREMITIES: Clubbing and cyanosis negative. LABORATORY DATA: Blood workup as follows, WBC 7.7, hemoglobin hematocrit 39.3, platelet count 367. Chemistry shows sodium 145, potassium 4.2, chloride 106, carbon dioxide 26, anion gap of 18, BUN 13, creatinine 0.9. EKG showed normal sinus, no acute ST-T changes, rate of 89. IMPRESSION: A 52-year-old morbidly obese female with a past medical history of diabetes, hypertension, hyperlipidemia, chronic obstructive pulmonary disease, obstructive sleep apnea, admitted with recurrent cerebrovascular accident with right-sided weakness and dysarthria. The patient has a history of cerebrovascular accident, status post tissue plasminogen activator. RECOMMENDATIONS: Anticoagulation as per Neurology and CVA protocol. We will get echo to assess LV function and also get bubble study to rule out any PFO. Get lipid profile, TSH and hemoglobin A1c. Further recommendations depending upon hospital course. We will follow with you. Thank you, Dr. Vásquez for providing us the opportunity in taking care of the patient, Ronald Preciado. Yin Lowery MD
[2018-05-01 06:14] LABS: BASO # 0.03 K/mm3 (0.0-2.0); BASO % 0.5 % (0.0-3.0); EOS # 0.2 (0.0-0.7); GRAN # 2.92 (1.4-6.5); GRAN % 52.7 % (50.0-68.0); HEMOGLOBIN 11.1 g/dL (12.0-16.0); LYMPH # 1.9 (1.2-3.4); LYMPH % 33.3 % (22.0-35.0); MEAN CELL VOLUME 77.3 fl (80.0-105.0); MEAN CORPUSCULAR HEMOGLOBIN 25.2 pg (25.0-35.0); MEAN CORPUSCULAR HGB CONC 32.6 g/dl (31.0-37.0); MEAN PLATELET VOLUME 9.7 fl (7.0-11.0); MONO # 0.5 (0.1-0.6); MONO % 9.5 % (1.0-6.0); RBC 4.41 10^6/uL (3.5-6.1); RED CELL DISTRIBUTION WIDTH 15.6 % (11.5-14.5); WHITE BLOOD COUNT 5.6 10^3/ul (4.5-11.0)
[2018-05-01 07:03] LABS: ALB/GLOB RATIO 1.2 (1.1-1.8); ALBUMIN 3.4 g/dL (3.0-4.8); ALT/SGPT 22 U/L (7-56); AST/SGOT 20 U/L (14-36); BLOOD UREA NITROGEN 7 mg/dL (7-21); CALCIUM 8.5 mg/dL (8.4-10.5); GFR AFRICAN-AMERICAN > 60; GFR NON-AFRICAN AMERICAN > 60
[2018-05-01] MEDS ORDERED: Potassium Chloride 40 mEq/30 ml LIQ UD PO ONE (07:08)
[2018-05-01] MEDS: Insulin Reg-LOW-Coverage SC SCH ×2 (07:53→14:08)
[2018-05-01] MEDS: Cholecalciferol 1,000 INTLU TAB PO SCH (09:50)
[2018-05-01] MEDS ORDERED: Non Formulary Medication (Losartan/Hydrochlorothiazide [Losartan-Hctz 100-25 Mg Tab] 1 TAB PO SCH (10:00)
[2018-05-01] MEDS ORDERED: LEVETIRACETAM 500 MG PO SCH (10:00)
[2018-05-01] MEDS ORDERED: Ranolazine [Ranexa] 500 MG (HOME MED) PO SCH (10:00)
[2018-05-01] MEDS ORDERED: Non Formulary Medication (Omeprazole [Omeprazole] 40 MG) PO SCH (10:00)
--- NOTE | 2018-05-01 10:02 | CP.PCM.PN ---
Subjective - Date & Time of Evaluation Date of Evaluation: 05/01/18 Time of Evaluation: 09:01 - Subjective Subjective: George Villatoro PGY 2 Neu[address] Progress Note [address] Dr. Ware Patient was seen and examined at bedside in ICU. There were no acute overnight events. CT Head following tPA administration did not show any hemorrhage or any acute changes. Patient's dysarthria has improved but her RLE still feels week. The patient denies any changes in vision/hearing, dizziness, headaches, chest pain, shortness of breath, fevers/chills, or n/v. While having the EEG done, the patient experienced another episode reported by nursing staff as seizures. Dr. Ware was present in ICU at this time, and evaluated the patient. The patient was able to follow commands to put her right leg up and to squeeze the examiner's hands. There was no epileptic waves noted on the EEG at the time of this episode, similar to what happened prior to presentation at Dr. Purdy's office. Dr. Ware made no further recommendations regarding this non-epileptic seizure, and instructed nursing staff to call Dr. Purdy (neurologist following the case) regarding further recommendations. Objective - Vital Signs/Intake and Output Vital Signs (last 24 hours): Temp Pulse Resp BP Pulse Ox 97.4 F L 72 23 137/78 96 05/01/18 04:00 05/01/18 09:51 04/30/18 18:45 05/01/18 09:51 04/30/18 18:45 Intake and Output: 05/01/18 05/01/18 06:59 18:59 Intake Total 2850 Output Total 1550 Balance 1300 - Medications Medications: Current Medications Acetaminophen (Tylenol 325mg Tab) 650 mg PO Q4H PRN PRN Reason: headache and pain Last Admin: 05/01/18 02:56 Dose: 650 mg Albuterol/Ipratropium (Duoneb 3 Mg/0.5 Mg (3 Ml) Ud) 3 ml IH Q2H PRN PRN Reason: Shortness of Breath Amlodipine Besylate (Norvasc) 5 mg PO DAILY [facility] Last Admin: 05/01/18 09:50 Dose: 5 mg Atorvastatin Calcium (Lipitor) 40 mg PO DAILY [facility] Last Admin: 05/01/18 09:51 Dose: 40 mg Carvedilol (Coreg) 6.25 mg PO BID [facility] Last Admin: 05/01/18 09:51 Dose: 6.25 mg Cholecalciferol (Vitamin D) 1,000 intlu PO DAILY [facility] Last Admin: 05/01/18 09:50 Dose: 1,000 intlu Hydrochlorothiazide (Hydrodiuril) 25 mg PO DAILY [facility] Last Admin: 05/01/18 09:51 Dose: 25 mg Sodium Chloride (Sodium Chloride 0.9%) 1,000 mls @ 100 mls/hr IV .Q10H [facility] Last Admin: 04/30/18 16:55 Dose: 100 mls/hr Insulin Human Regular (Humulin R Low) 0 units SC ACHS [facility] PRN Reason: Protocol Last Admin: 05/01/18 07:53 Dose: Not Given Levetiracetam (Keppra) 500 mg PO BID [facility] Last Admin: 05/01/18 09:51 Dose: 500 mg Losartan Potassium (Cozaar) 100 mg PO DAILY [facility] Meclizine HCl (Antivert) 25 mg PO TID [facility] Last Admin: 05/01/18 09:51 Dose: 25 mg Ranolazine [Ranexa] (500 Mg (Home Med)) 500 mg PO BID [facility] Pantoprazole Sodium (Protonix Ec Tab) 40 mg PO 0600 [facility] Vitamin A (Vitamin A & D Oint Ud Foilpak) 1 ea TOP Q2 PRN PRN Reason: Dry mouth - Labs Labs: 05/01/18 05:45 05/01/18 05:45 PT 11.4 SECONDS (9.4-12.5) 04/29/18 14:30 INR 1.00 04/29/18 14:30 APTT 32.5 Seconds (25.1-36.5) 04/29/18 14:30 - Additional Findings Additional findings: - Constitutional Appears: Well, Non-toxic, No Acute Distress - Head Exam Head Exam: NORMAL INSPECTION - Eye Exam Eye Exam: EOMI, Normal appearance, PERRL - ENT Exam ENT Exam: Mucous Membranes Dry - Neck Exam Neck Exam: Full ROM, Normal Inspection - Respiratory Exam Respiratory Exam: NORMAL BREATHING PATTERN. absent: Rales, Rhonchi, Wheezes - Cardiovascular Exam Cardiovascular Exam: RRR, +S1, +S2 - GI/Abdominal Exam GI & Abdominal Exam: Soft. absent: Distended, Tenderness - Extremities Exam Extremities Exam: Full ROM, Normal Inspection. absent: Pedal Edema Additional comments: SCDs on b/l - Back Exam Back Exam: NORMAL INSPECTION - Neurological Exam Neurological Exam: Alert, Awake, CN II-XII Intact (grossly), Oriented x3. absent: Motor Sensory Deficit Neuro motor strength exam: Left Upper Extremity: 5, Right Upper Extremity: 5, Left Lower Extremity: 5, Right Lower Extremity: 5 (plantarflexion 0/5; dorsiflexion 4/5) Additional comments: no dysarthria noted - Psychiatric Exam Psychiatric exam: Normal Mood - Skin Skin Exam: Warm Assessment and Plan - Assessment and Plan (Free Text) Assessment: 52 year old female with a PMH of CVA/TIA (2017) with residual R foot drop, seizures (last in 01/2018), morbid obesity, HTN, ANGIE, asthma, and vertigo who presented with right sided weakness, dysarthria and facial drooping. CODE STROKE was called, and patient underwent CT Head that showed no acute findings or evidence of bleed. Decision was made to administer tPA (90mg total). Patient was monitored in ICU with bleeding precautions, with no neurological changes noted and f/u CT showing no hemorrhage. Patient is transferred out of ICU and should undergo PT/OT/Speech therapy. Symptoms likely due to non-epileptic seizure given normal EEG with seizure-like symptoms at times of stress. Plan: Non-epileptic seizure - Despite presentation similar to CVA, MRI showed no evidence of an acute or early subacute infarction. - Speech & Swallow eval done; recommending advanced bite size diet w/ thin liquids - PT/OT - Echo w/ bubble study pending, per cardio recs - Lipid panel and A1c show evidence of good glycemic and lipid control - PTX/SCDs - EEG done, pending official read - seizure precautions - cont Keppra 500mg PO q12 - further recs per Dr. Purdy - further recs per Dr. Ware Case was reviewed and discussed with attending, Dr. Ware
--- NOTE | 2018-05-01 12:36 | CP.PCM.PN ---
<Nael Orozco - Last Filed: 05/01/18 12:32> Subjective - Date & Time of Evaluation Date of Evaluation: 05/01/18 Time of Evaluation: 12:00 - Subjective Subjective: Nael Orozco PGY-1 Progress Note for Hospitalist Service Patient seen and evaluated at bedside. Patient denies any acute events this morning. Patient is sitting up in bed comfortably eating breakfast. Patient admits to some headaches but denies chest pain, palpitations, shortness of breath, blurry vision, abdominal pain, confusion, and changes in urinary or bowel habits. Objective - Vital Signs/Intake and Output Vital Signs (last 24 hours): Temp Pulse Resp BP Pulse Ox 97.4 F L 69 23 146/89 97 05/01/18 04:00 05/01/18 10:31 04/30/18 18:45 05/01/18 10:31 05/01/18 10:31 Intake and Output: 05/01/18 05/01/18 06:59 18:59 Intake Total 2850 Output Total 1550 Balance 1300 - Medications Medications: Current Medications Acetaminophen (Tylenol 325mg Tab) 650 mg PO Q4H PRN PRN Reason: headache and pain Last Admin: 05/01/18 02:56 Dose: 650 mg Albuterol/Ipratropium (Duoneb 3 Mg/0.5 Mg (3 Ml) Ud) 3 ml IH Q2H PRN PRN Reason: Shortness of Breath Amlodipine Besylate (Norvasc) 5 mg PO DAILY [facility] Last Admin: 05/01/18 09:50 Dose: 5 mg Aspirin (Aspirin Chewable) 81 mg PO DAILY [facility] Atorvastatin Calcium (Lipitor) 40 mg PO DAILY [facility] Last Admin: 05/01/18 09:51 Dose: 40 mg Carvedilol (Coreg) 6.25 mg PO BID [facility] Last Admin: 05/01/18 09:51 Dose: 6.25 mg Cholecalciferol (Vitamin D) 1,000 intlu PO DAILY [facility] Last Admin: 05/01/18 09:50 Dose: 1,000 intlu Clopidogrel Bisulfate (Plavix) 75 mg PO DAILY [facility] Hydrochlorothiazide (Hydrodiuril) 25 mg PO DAILY [facility] Last Admin: 05/01/18 09:51 Dose: 25 mg Sodium Chloride (Sodium Chloride 0.9%) 1,000 mls @ 100 mls/hr IV .Q10H [facility] Last Admin: 04/30/18 16:55 Dose: 100 mls/hr Insulin Human Regular (Humulin R Low) 0 units SC ACHS [facility] PRN Reason: Protocol Last Admin: 05/01/18 07:53 Dose: Not Given Levetiracetam (Keppra) 500 mg PO BID [facility] Last Admin: 05/01/18 09:51 Dose: 500 mg Losartan Potassium (Cozaar) 100 mg PO DAILY [facility] Meclizine HCl (Antivert) 25 mg PO TID [facility] Last Admin: 05/01/18 09:51 Dose: 25 mg Ranolazine [Ranexa] (500 Mg (Home Med)) 500 mg PO BID [facility] Pantoprazole Sodium (Protonix Ec Tab) 40 mg PO 0600 [facility] Vitamin A (Vitamin A & D Oint Ud Foilpak) 1 ea TOP Q2 PRN PRN Reason: Dry mouth - Labs Labs: 05/01/18 05:45 05/01/18 05:45 PT 11.4 SECONDS (9.4-12.5) 04/29/18 14:30 INR 1.00 04/29/18 14:30 APTT 32.5 Seconds (25.1-36.5) 04/29/18 14:30 Physical Exam - Constitutional Appears: Non-toxic, No Acute Distress - Head Exam Head Exam: ATRAUMATIC, NORMOCEPHALIC Additional comments: Right sided facial droop - Eye Exam Eye Exam: EOMI, Normal appearance, PERRL. absent: Conjunctival injection, Nystagmus, Periorbital swelling, Periorbital tenderness, Scleral icterus Pupil Exam: NORMAL ACCOMODATION, PERRL. absent: Fixed, Irregular, Miosis, Mydriatic, Unequal - ENT Exam ENT Exam: Mucous Membranes Moist, Normal External Ear Exam. absent: Mucous Membranes Dry, Normal Oropharynx - Neck Exam Neck exam: Positive for: Full Rom, Normal Inspection. Negative for: Lymphadenopathy, Meningismus, Tenderness, Thyromegaly - Respiratory Exam Respiratory Exam: Clear to Auscultation Bilateral, NORMAL BREATHING PATTERN. absent: Accessory Muscle Use, Chest Wall Tenderness, Decreased Breath Sounds, Prolonged Expiratory Phase, Rales, Rhonchi, Wheezes, Respiratory Distress, Stridor - Cardiovascular Exam Cardiovascular Exam: REGULAR RHYTHM, RRR, +S1, +S2. absent: Bradycardia, Tachycardia, Clicks, Diastolic murmur, Gallop, Irregular Rhythm, JVD, Rubs, +S4 , Systolic Murmur - GI/Abdominal Exam GI & Abdominal Exam: Normal Bowel Sounds, Soft. absent: Bruit, Diminished Bowel Sounds, Distended, Firm, Guarding, Hernia, Hyperactive Bowel Sounds, Hypoactive Bowel Sounds, Mass, Organomegaly, Pulsatile Mass, Rebound, Rigid, Tenderness - Extremities Exam Extremities exam: Decreased ROM in RLE, but could bring leg past midline. Difficulty lifting. Positive for: normal capillary refill, pedal pulses present. Negative for: calf tenderness, joint swelling, normal inspection, pedal edema, tenderness - Back Exam Back exam: FULL ROM, NORMAL INSPECTION. absent: CVA tenderness (L), CVA tenderness (R), muscle spasm, paraspinal tenderness, rash noted, tenderness, vertebral tenderness - Neurological Exam Neurological exam: Alert, Oriented x3 - Expanded Neurological Exam Expanded Patient oriented to: person, place, time, situation Speech: Improved clarity in Speech, resolved dysarthria Cranial nerves: Facial Palsy w/Forehead Movement: Abnormal Right Neuro motor strength exam: Left Upper Extremity: 4, Right Upper Extremity: 4, Left Lower Extremity: 4, Right Lower Extremity: 2 Sensation intact in UE and LE bilaterally - Psychiatric Exam Psychiatric exam: Normal Affect, Normal Mood - Skin Skin Exam: Dry, Intact, Normal Color, Warm Assessment and Plan - Assessment and Plan (Free Text) Assessment: Assessment: 52 year old female with a past medical history significant for previous CVA with residual RLE weakness, seizures, DM2, HTN, ANGIE, asthma, and vertigo who presented with right sided weakness, dysarthria and facial drooping that started 04/29 during an EEG. Plan: 1. Dysarthria vs TIA - Initial CT Head showed no intracranial abnormalities - CXR showed no active disease - Given tPA in ED 04/29 - MRA Neck normal - Brain MRI showed no acute abnormality. Mild chronic microangiopathic changes along with mild cerebellar tonsillar ectopia - Repeat Head CT showed no evidence of acute infarct - Speech therapy: mild oral pharyngeal dysphagia w low to mod risk aspiration due to min oral motor weakness - Passed Swallow Study and recommended mechanical soft bite size pieces - continued home PO meds along with dual anti-platelet therapy - NS @ 100 cc/hr - Fall, bleed and Aspiration precautions - Transfer to telemetry - Neurology and Cardiology consulted, all recommendations appreciated - f/u Echo w bubble study to rule out PFO due to recurrent CVAs per cardiology ( Dr. Lowery) 2. History of Seizures - Keppra 500mg PO BID - self-resolved. 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 No abnormal waves seen at time. - Seizure precautions - will continue to monitor 3. History of DM2 - ISS-Low and Accuchecks Q6 - A1c 5.8 - lipid panel wnl 4. History of Asthma -Duonebs Q2 PRN - will monitor 5. Hx of HTN - carvedilol 6.25 BID, Norvasc 5 - will monitor GI Prophylaxis: Protonix 40 PO DVT Prophylaxis: SCD's Disposition: F/u PT recommendations regarding rehab Patient seen, case reviewed, and plan discussed with Dr. Jewell. Nael Orozco, PGY-1 <Yin Jewell - Last Filed: 05/02/18 13:14> Objective - Vital Signs/Intake and Output Vital Signs (last 24 hours): Temp Pulse Resp BP Pulse Ox 98.3 F 58 L 21 126/72 96 05/01/18 20:00 05/02/18 10:15 05/02/18 08:29 05/02/18 10:15 05/02/18 08:29 Intake and Output: 05/02/18 05/02/18 06:59 18:59 Output Total 1200 Balance -1200 - Medications Medications: Current Medications Acetaminophen (Tylenol 325mg Tab) 650 mg PO Q4H PRN PRN Reason: headache and pain Last Admin: 05/02/18 05:58 Dose: 650 mg Albuterol/Ipratropium (Duoneb 3 Mg/0.5 Mg (3 Ml) Ud) 3 ml IH Q2H PRN PRN Reason: Shortness of Breath Amlodipine Besylate (Norvasc) 5 mg PO DAILY [facility] Last Admin: 05/02/18 10:13 Dose: 5 mg Aspirin (Aspirin Chewable) 81 mg PO DAILY [facility] Last Admin: 05/02/18 10:12 Dose: 81 mg Atorvastatin Calcium (Lipitor) 40 mg PO DAILY [facility] Last Admin: 05/02/18 10:12 Dose: 40 mg Carvedilol (Coreg) 6.25 mg PO BID [facility] Last Admin: 05/02/18 10:15 Dose: 6.25 mg Cholecalciferol (Vitamin D) 1,000 intlu PO DAILY [facility] Last Admin: 05/02/18 10:13 Dose: 1,000 intlu Clopidogrel Bisulfate (Plavix) 75 mg PO DAILY [facility] Last Admin: 05/02/18 10:13 Dose: 75 mg Hydrochlorothiazide (Hydrodiuril) 25 mg PO DAILY [facility] Last Admin: 05/02/18 10:12 Dose: 25 mg Insulin Human Regular (Humulin R Low) 0 units SC ACHS [facility] PRN Reason: Protocol Last Admin: 05/01/18 14:08 Dose: Not Given Levetiracetam (Keppra) 500 mg PO BID [facility] Last Admin: 05/02/18 10:12 Dose: 500 mg Losartan Potassium (Cozaar) 100 mg PO DAILY [facility] Last Admin: 05/02/18 11:01 Dose: 100 mg Meclizine HCl (Antivert) 25 mg PO TID [facility] Last Admin: 05/02/18 10:15 Dose: 25 mg Pantoprazole Sodium (Protonix Ec Tab) 40 mg PO 0600 [facility] Last Admin: 05/02/18 06:01 Dose: 40 mg Vitamin A (Vitamin A & D Oint Ud Foilpak) 1 ea TOP Q2 PRN PRN Reason: Dry mouth - Labs Labs: 05/02/18 05:00 05/02/18 05:00 PT 11.4 SECONDS (9.4-12.5) 04/29/18 14:30 INR 1.00 04/29/18 14:30 APTT 32.5 Seconds (25.1-36.5) 04/29/18 14:30 Attending/Attestation - Attestation I have personally seen and examined this patient.: Yes I have fully participated in the care of the patient.: Yes I have reviewed all pertinent clinical information, including history, physical exam and plan: Yes Notes (Text): 05/02/18 13:04 Medical record note made by the resident after discussion with my direction and input after the patient was personally seen and examined by me. I have reviewed the chart and agree that the record accurately reflects by personal performance of the history, physical exam, data review, and medical decision-making, in the course for the patient. I have also personally directed the plan of care. 52 year old female with PMH of significant for previous CVA with residual Right Lower extremity weakness, seizure disorder, DM2, HTN, ANGIE, asthma, and vertigo was admitted with worsening of right lower extremity weakness and dysarthria , patient was in her Neurologist office at that time.CT head was negative.Patient is SP TPA, Repeat CT can of head and MRI of brain today is negative for acute infarct.MRA of neck is unremarkable. Dysarthia is resolved.Right lower extremity weakness is persistent. Blood pressure is stable.Echo was reviewed.There is no PFO or cardiac thrombus.Patient has been restarted on her Aspirin and Plavix. Management plan was discussed in detail with patient. Education was provided.
--- NOTE | 2018-05-01 14:35 | PN ---
Copied To: Yin Lowery MD Attending MD: Yin Lowery MD DATE: 05/01/2018 REASON FOR THE CONSULTATION: Acute CVA, right-sided weakness, cardiac evaluation, status post tPA. SUBJECTIVE: Patient denies any chest pain. Feels a lot better. Speech is much improved. OBJECTIVE: GENERAL: Significant improvement in speech, awake and alert, reading the newspaper. VITAL SIGNS: Temperature afebrile, heart rate 56, blood pressure 115/61. HEENT: PERRLA. Extraocular muscles intact. NECK: Supple. No carotid bruit or thyromegaly. CHEST: Clear to auscultation. HEART: S1 and S2 regular. ABDOMEN: Soft. EXTREMITIES: Clubbing and cyanosis, negative. LABORATORY DATA: Blood workup: WBC 5.6, hemoglobin 11.1, hematocrit 34.1, platelet count 292. Chemistry shows sodium 145, potassium 3.5, chloride 112, carbon dioxide 25, anion gap of 11, BUN 7, creatinine 0.7. IMPRESSION: Acute cerebrovascular accident with right-sided weakness; dysarthria; slurred speech, status post tissue plasminogen activator, improving; morbid obesity; hypertension; type 2 diabetes; hyperlipidemia. Patient had echocardiography done yesterday, preserved left ventricular function. Awaiting bubble study to rule out any patent foramen ovale because the patient is having recurrent cerebrovascular accident. MRI of the brain shows no acute intracranial abnormality. RECOMMENDATIONS: Continue aggressive control of blood pressure. Continue lifestyle modification, risk factor for coronary artery disease. Continue atorvastatin, Coreg, aspirin and other anticoagulation as per neurologist. We will discontinue IV fluid. Thank you Dr. Jewell for providing us the opportunity in taking care of the patient, Ozzy. Yin Lowery MD
--- NOTE | 2018-05-01 17:31 | CARD ---
APPROVED REPORT Date of service: 04/30/2018 EXAM: Two-dimensional and M-mode echocardiogram with Doppler and color Doppler. INDICATION ACUTE CVA( RECURRENT) R/O THROMBUS..PFO..BUBBLE STUDY 2D DIMENSIONS Left Atrium (2D)3.8 (1.6-4.0cm)IVSd1.1 (0.7-1.1cm) LVDd5.0 (3.9-5.9cm)PWd1.1 (0.7-1.1cm) LVDs3.3 (2.5-4.0cm)FS (%) 33.7 % LVEF (%)62.0 (>50%) M-Mode DIMENSIONS Aortic Root2.70 (2.2-3.7cm)Aortic Cusp Exc.1.90 (1.5-2.0cm) Aortic Valve AO Peak GR.11mmHg Mitral Valve E/A ratio0.0 TDI E/Lateral E'0.0E/Medial E'0.0 Tricuspid Valve RAP [id number] Peak [id number] LEFT VENTRICLE The left ventricle is normal size. There is normal left ventricular wall thickness. The left ventricular function is normal.EF-60-65% There is normal LV segmental wall motion. Transmitral Doppler flow pattern is Grade III-reversible restrictive diastolic dysfunction. No left ventricle thrombus noted on this study. There is no ventricular septal defect visualized. There is no left ventricular aneurysm. There is no mass noted in the left ventricle. RIGHT VENTRICLE The right ventricle is normal size. There is normal right ventricular wall thickness. The right ventricular systolic function is normal. ATRIA The left atrium size is normal. The right atrium size is normal. The interatrial septum is intact with no evidence for an atrial septal defect, By Bubble study and Color Flow. AORTIC VALVE The aortic valve is thickened but opens well. No aortic regurgitation is present. There is no aortic valvular stenosis. There is no aortic valvular vegetation. MITRAL VALVE The mitral valve is thickened but opens well. Mitral regurgitation is trace to mild. There is no mitral valve stenosis. There is no evidence of mitral valve prolapse. TRICUSPID VALVE The tricuspid valve leaflets are thickened , but open well. There is trace to mild tricuspid regurgitation.RVSP-39 mmof Hg There is no tricuspid valve stenosis. There is no tricuspid valve prolapse or vegetation. PULMONIC VALVE The pulmonary valve is normal in structure. There is no pulmonic valvular regurgitation. There is no pulmonic valvular stenosis. GREAT VESSELS The aortic root is normal in size. The ascending aorta is normal in size. The pulmonary artery is normal. The IVC is normal in size and collapses >50% with inspiration. PERICARDIAL EFFUSION There is no pleural effusion. There is no pericardial effusion. <Conclusion> Normal Chamber Size,Normal EF-60-65% Mitral regurgitation is trace to mild. There is trace to mild tricuspid regurgitation.RVSP-39 mmof Hg The interatrial septum is intact with no evidence for an atrial septal defect, By Bubble study and Color Flow. No thrombus or vegetation noted. ( Echo completed with Bubble Study today).
[2018-05-02 05:52] LABS: BASO # 0.03 K/mm3 (0.0-2.0); BASO % 0.6 % (0.0-3.0); EOS # 0.3 (0.0-0.7); EOS % 4.7 % (1.5-5.0); GRAN # 2.86 (1.4-6.5); GRAN % 53.6 % (50.0-68.0); HEMOGLOBIN 11.3 g/dL (12.0-16.0); LYMPH # 1.8 (1.2-3.4); LYMPH % 33.2 % (22.0-35.0); MEAN CELL VOLUME 76.5 fl (80.0-105.0); MEAN CORPUSCULAR HEMOGLOBIN 24.6 pg (25.0-35.0); MEAN CORPUSCULAR HGB CONC 32.2 g/dl (31.0-37.0); MEAN PLATELET VOLUME 9.6 fl (7.0-11.0); MONO # 0.4 (0.1-0.6); MONO % 7.9 % (1.0-6.0); RBC 4.59 10^6/uL (3.5-6.1); RED CELL DISTRIBUTION WIDTH 15.5 % (11.5-14.5); WHITE BLOOD COUNT 5.3 10^3/ul (4.5-11.0)
[2018-05-02 05:56] LABS: ALB/GLOB RATIO 1.3 (1.1-1.8); ALBUMIN 3.7 g/dL (3.0-4.8); ALT/SGPT 20 U/L (7-56); AST/SGOT 34 U/L (14-36); BLOOD UREA NITROGEN 6 mg/dL (7-21); CALCIUM 9.2 mg/dL (8.4-10.5); GFR AFRICAN-AMERICAN > 60; GFR NON-AFRICAN AMERICAN > 60
[2018-05-02] MEDS: Pantoprazole 40 mg EC Tab PO SCH (06:01)
[2018-05-02] MEDS ORDERED: Potassium Chloride 40 mEq/30 ml LIQ UD PO ONE (06:48)
[2018-05-02] MEDS: Insulin Reg-LOW-Coverage SC SCH ×4 (07:30→22:00)
--- NOTE | 2018-05-02 07:34 | CP.PCM.PN ---
<Niels Pretty - Last Filed: 05/02/18 09:07> Subjective - Date & Time of Evaluation Date of Evaluation: 05/02/18 Time of Evaluation: 07:33 - Subjective Subjective: Niels Pretty DO PGY1 Internal Medicine Configuration Management Analyst - Hospital Progress Note Patient seen at bedside in ICU this AM; no acute events reported overnight; nonepilipetic seizure day prior. Today pt appears to be having new progressive dysarthria compared to day before ; nursing reported that patient tolerated her food well and did not have any aspiration type symptoms. 12 system ROS otherwise negative Objective - Vital Signs/Intake and Output Vital Signs (last 24 hours): Temp Pulse Resp BP Pulse Ox 98.1 F 58 L 28 H 126/80 99 05/01/18 16:00 05/01/18 18:00 05/01/18 17:00 05/01/18 17:32 05/01/18 17:00 - Medications Medications: Current Medications Acetaminophen (Tylenol 325mg Tab) 650 mg PO Q4H PRN PRN Reason: headache and pain Last Admin: 05/02/18 05:58 Dose: 650 mg Albuterol/Ipratropium (Duoneb 3 Mg/0.5 Mg (3 Ml) Ud) 3 ml IH Q2H PRN PRN Reason: Shortness of Breath Amlodipine Besylate (Norvasc) 5 mg PO DAILY [facility] Last Admin: 05/01/18 09:50 Dose: 5 mg Aspirin (Aspirin Chewable) 81 mg PO DAILY [facility] Last Admin: 05/01/18 14:53 Dose: 81 mg Atorvastatin Calcium (Lipitor) 40 mg PO DAILY [facility] Last Admin: 05/01/18 09:51 Dose: 40 mg Carvedilol (Coreg) 6.25 mg PO BID [facility] Last Admin: 05/01/18 17:32 Dose: 6.25 mg Cholecalciferol (Vitamin D) 1,000 intlu PO DAILY [facility] Last Admin: 05/01/18 09:50 Dose: 1,000 intlu Clopidogrel Bisulfate (Plavix) 75 mg PO DAILY [facility] Last Admin: 05/01/18 14:53 Dose: 75 mg Hydrochlorothiazide (Hydrodiuril) 25 mg PO DAILY [facility] Last Admin: 05/01/18 09:51 Dose: 25 mg Insulin Human Regular (Humulin R Low) 0 units SC ACHS [facility] PRN Reason: Protocol Last Admin: 05/01/18 14:08 Dose: Not Given Levetiracetam (Keppra) 500 mg PO BID [facility] Last Admin: 05/01/18 17:32 Dose: 500 mg Losartan Potassium (Cozaar) 100 mg PO DAILY [facility] Last Admin: 05/01/18 14:50 Dose: 100 mg Meclizine HCl (Antivert) 25 mg PO TID [facility] Last Admin: 05/01/18 17:32 Dose: 25 mg Pantoprazole Sodium (Protonix Ec Tab) 40 mg PO 0600 [facility] Last Admin: 05/02/18 06:01 Dose: 40 mg Vitamin A (Vitamin A & D Oint Ud Foilpak) 1 ea TOP Q2 PRN PRN Reason: Dry mouth - Labs Labs: 05/02/18 05:00 05/02/18 05:00 PT 11.4 SECONDS (9.4-12.5) 04/29/18 14:30 INR 1.00 04/29/18 14:30 APTT 32.5 Seconds (25.1-36.5) 04/29/18 14:30 Physical Exam - Constitutional Appears: Non-toxic, No Acute Distress - Head Exam Head Exam: ATRAUMATIC, NORMOCEPHALIC Additional comments: Right sided facial droop - Eye Exam Eye Exam: EOMI, Normal appearance, PERRL. absent: Conjunctival injection, Nystagmus, Periorbital swelling, Periorbital tenderness, Scleral icterus Pupil Exam: NORMAL ACCOMODATION, PERRL. absent: Fixed, Irregular, Miosis, Mydriatic, Unequal - ENT Exam ENT Exam: Mucous Membranes Moist, Normal External Ear Exam. absent: Mucous Membranes Dry, Normal Oropharynx - Neck Exam Neck exam: Positive for: Full Rom, Normal Inspection. Negative for: Lymphadenopathy, Meningismus, Tenderness, Thyromegaly - Respiratory Exam Respiratory Exam: Clear to Auscultation Bilateral, NORMAL BREATHING PATTERN. absent: Accessory Muscle Use, Chest Wall Tenderness, Decreased Breath Sounds, Prolonged Expiratory Phase, Rales, Rhonchi, Wheezes, Respiratory Distress, Stridor - Cardiovascular Exam Cardiovascular Exam: REGULAR RHYTHM, RRR, +S1, +S2. absent: Bradycardia, Tachycardia, Clicks, Diastolic murmur, Gallop, Irregular Rhythm, JVD, Rubs, +S4 , Systolic Murmur - GI/Abdominal Exam GI & Abdominal Exam: Normal Bowel Sounds, Soft. absent: Bruit, Diminished Bowel Sounds, Distended, Firm, Guarding, Hernia, Hyperactive Bowel Sounds, Hypoactive Bowel Sounds, Mass, Organomegaly, Pulsatile Mass, Rebound, Rigid, Tenderness - Extremities Exam Extremities exam: Decreased ROM in RLE, but could bring leg past midline. Difficulty lifting. Positive for: normal capillary refill, pedal pulses present. Negative for: calf tenderness, joint swelling, normal inspection, pedal edema, tenderness - Back Exam Back exam: FULL ROM, NORMAL INSPECTION. absent: CVA tenderness (L), CVA tenderness (R), muscle spasm, paraspinal tenderness, rash noted, tenderness, vertebral tenderness - Neurological Exam Neurological exam: Alert, Oriented x3 - Expanded Neurological Exam Expanded Patient oriented to: person, place, time, situation Speech: Dysarthria present today; worsened from yesterday Cranial nerves: Facial Palsy w/Forehead Movement: Abnormal Right Neuro motor strength exam: Left Upper Extremity: 4, Right Upper Extremity: 4, Left Lower Extremity: 4, Right Lower Extremity: 2 Sensation intact in UE and LE bilaterally - Psychiatric Exam Psychiatric exam: Normal Affect, Normal Mood - Skin Skin Exam: Dry, Intact, Normal Color, Warm Assessment and Plan - Assessment and Plan (Free Text) Assessment: 52 year old female with a past medical history significant for previous CVA with residual RLE weakness, seizures, DM2, HTN, ANGIE, asthma, and vertigo who presented with right sided weakness, dysarthria and facial drooping that started 04/29 during an EEG. Plan: 1. Dysarthria vs TIA - Patient with new onset dysarthria this AM; finding is abnormal compared to exam yesterday; - Will repeat CT head to r/o stroke progression/ hemorrhagic conversion - Initial CT Head showed no intracranial abnormalities - CXR showed no active disease - Given tPA in ED 04/29 - MRA Neck normal - Brain MRI showed no acute abnormality. Mild chronic microangiopathic changes along with mild cerebellar tonsillar ectopia - Repeat Head CT showed no evidence of acute infarct - Speech therapy: mild oral pharyngeal dysphagia w low to mod risk aspiration due to min oral motor weakness - Passed Swallow Study and recommended mechanical soft bite size pieces - continued home PO meds along with dual anti-platelet therapy - NS @ 100 cc/hr - Fall, bleed and Aspiration precautions - Transfer to telemetry - Neurology and Cardiology consulted, all recommendations appreciated - f/u Echo w bubble study to rule out PFO due to recurrent CVAs per cardiology ( Dr. Lowery) 2. History of Seizures - Keppra 500mg PO BID - Nonepileptic seizure observed yesterday; will continue monitoring - Seizure precautions - will continue to monitor 3. History of DM2 - ISS-Low and Accuchecks Q6 - A1c 5.8 - lipid panel wnl 4. History of Asthma -Duonebs Q2 PRN - will monitor 5. Hx of HTN - carvedilol 6.25 BID, Norvasc 5 - will monitor GI Prophylaxis: Protonix 40 PO DVT Prophylaxis: SCD's Disposition: F/u PT recommendations regarding rehab Patient seen, case reviewed, and plan discussed with Dr. Jewell. Niels Pretty DO - PGY1 Internal Medicine Configuration Management Analyst - Pager [phone] <Yin Jewell - Last Filed: 05/02/18 13:18> Objective - Vital Signs/Intake and Output Vital Signs (last 24 hours): Temp Pulse Resp BP Pulse Ox 98.3 F 58 L 21 126/72 96 05/01/18 20:00 05/02/18 10:15 05/02/18 08:29 05/02/18 10:15 05/02/18 08:29 Intake and Output: 05/02/18 05/02/18 06:59 18:59 Output Total 1200 Balance -1200 - Medications Medications: Current Medications Acetaminophen (Tylenol 325mg Tab) 650 mg PO Q4H PRN PRN Reason: headache and pain Last Admin: 05/02/18 05:58 Dose: 650 mg Albuterol/Ipratropium (Duoneb 3 Mg/0.5 Mg (3 Ml) Ud) 3 ml IH Q2H PRN PRN Reason: Shortness of Breath Amlodipine Besylate (Norvasc) 5 mg PO DAILY [facility] Last Admin: 05/02/18 10:13 Dose: 5 mg Aspirin (Aspirin Chewable) 81 mg PO DAILY [facility] Last Admin: 05/02/18 10:12 Dose: 81 mg Atorvastatin Calcium (Lipitor) 40 mg PO DAILY [facility] Last Admin: 05/02/18 10:12 Dose: 40 mg Carvedilol (Coreg) 6.25 mg PO BID [facility] Last Admin: 05/02/18 10:15 Dose: 6.25 mg Cholecalciferol (Vitamin D) 1,000 intlu PO DAILY [facility] Last Admin: 05/02/18 10:13 Dose: 1,000 intlu Clopidogrel Bisulfate (Plavix) 75 mg PO DAILY [facility] Last Admin: 05/02/18 10:13 Dose: 75 mg Hydrochlorothiazide (Hydrodiuril) 25 mg PO DAILY [facility] Last Admin: 05/02/18 10:12 Dose: 25 mg Insulin Human Regular (Humulin R Low) 0 units SC ACHS [facility] PRN Reason: Protocol Last Admin: 05/01/18 14:08 Dose: Not Given Levetiracetam (Keppra) 500 mg PO BID [facility] Last Admin: 05/02/18 10:12 Dose: 500 mg Losartan Potassium (Cozaar) 100 mg PO DAILY [facility] Last Admin: 05/02/18 11:01 Dose: 100 mg Meclizine HCl (Antivert) 25 mg PO TID [facility] Last Admin: 05/02/18 10:15 Dose: 25 mg Pantoprazole Sodium (Protonix Ec Tab) 40 mg PO 0600 [facility] Last Admin: 05/02/18 06:01 Dose: 40 mg Vitamin A (Vitamin A & D Oint Ud Foilpak) 1 ea TOP Q2 PRN PRN Reason: Dry mouth - Labs Labs: 05/02/18 05:00 05/02/18 05:00 PT 11.4 SECONDS (9.4-12.5) 04/29/18 14:30 INR 1.00 04/29/18 14:30 APTT 32.5 Seconds (25.1-36.5) 04/29/18 14:30 Attending/Attestation - Attestation I have personally seen and examined this patient.: Yes I have fully participated in the care of the patient.: Yes I have reviewed all pertinent clinical information, including history, physical exam and plan: Yes Notes (Text): 05/02/18 13:16 Medical record note made by the resident after discussion with my direction and input after the patient was personally seen and examined by me. I have reviewed the chart and agree that the record accurately reflects by personal performance of the history, physical exam, data review, and medical decision-making, in the course for the patient. I have also personally directed the plan of care. Patient was found to have dysarthia again today , which as per patient was started when she was having EEG.There is no other focal deficit.CT scan of had today is unchanged. Blood pressure is stable.Echo was reviewed.There is no PFO or cardiac thrombus.Patient has been restarted on her Aspirin and Plavix. Management plan was discussed in detail with patient. Education was provided.
--- NOTE | 2018-05-02 09:32 | CT ---
Date of service: 05/02/2018 PROCEDURE: CT HEAD WITHOUT CONTRAST. HISTORY: stroke evolution COMPARISON: Comparison made with CT scan brain and MRI both dated 04/30/2018. TECHNIQUE: Axial computed tomography images were obtained through the head/brain without intravenous contrast. Radiation dose: Total exam DLP = 801.47 mGy-cm. This CT exam was performed using one or more of the following dose reduction techniques: Automated exposure control, adjustment of the mA and/or kV according to patient size, and/or use of iterative reconstruction technique. FINDINGS: HEMORRHAGE: No acute parenchymal, subarachnoid or extra-axial hemorrhage. Hemorrhage. BRAIN: No evidence of large acute infarct. Minimal chronic white matter ischemic changes less well seen on this exam as compared to prior MRI. Ventricular and sulcal size within range of normal this patient's stated age. VENTRICLES: No obstructive hydrocephalus. CALVARIUM: Unremarkable. PARANASAL SINUSES: Unremarkable as visualized. No significant inflammatory changes. MASTOID AIR CELLS: Unremarkable as visualized. No inflammatory changes. OTHER FINDINGS: None. IMPRESSION: No acute intracranial hemorrhage. Minimal chronic white matter ischemic changes less well seen on this study compared prior MRI of the brain as detailed above.
[2018-05-02] MEDS: Cholecalciferol 1,000 INTLU TAB PO SCH (10:13)
[2018-05-03 05:34] LABS: BASO # 0.02 K/mm3 (0.0-2.0); BASO % 0.3 % (0.0-3.0); EOS # 0.2 (0.0-0.7); EOS % 2.8 % (1.5-5.0); GRAN # 3.28 (1.4-6.5); GRAN % 54.5 % (50.0-68.0); LYMPH # 1.9 (1.2-3.4); LYMPH % 31.6 % (22.0-35.0); MEAN CELL VOLUME 76.4 fl (80.0-105.0); MEAN CORPUSCULAR HEMOGLOBIN 24.8 pg (25.0-35.0); MEAN CORPUSCULAR HGB CONC 32.4 g/dl (31.0-37.0); MEAN PLATELET VOLUME 9.6 fl (7.0-11.0); MONO # 0.7 (0.1-0.6); MONO % 10.8 % (1.0-6.0); RBC 4.84 10^6/uL (3.5-6.1); RED CELL DISTRIBUTION WIDTH 15.5 % (11.5-14.5)
[2018-05-03] MEDS: Pantoprazole 40 mg EC Tab PO SCH (05:49)
[2018-05-03 05:54] LABS: ALB/GLOB RATIO 1.3 (1.1-1.8); ALBUMIN 3.8 g/dL (3.0-4.8); ALT/SGPT 28 U/L (7-56); AST/SGOT 32 U/L (14-36); BLOOD UREA NITROGEN 10 mg/dL (7-21); GFR AFRICAN-AMERICAN > 60; GFR NON-AFRICAN AMERICAN > 60
[2018-05-03] MEDS ORDERED: Potassium Chloride 40 mEq/30 ml LIQ UD PO ONE (07:12)
[2018-05-03] MEDS: Insulin Reg-LOW-Coverage SC SCH ×4 (07:30→22:51)
--- NOTE | 2018-05-03 08:37 | CP.PCM.PN ---
<Niels Pretty - Last Filed: 05/03/18 11:27> Subjective - Date & Time of Evaluation Date of Evaluation: 05/03/18 Time of Evaluation: 08:35 - Subjective Subjective: Niels Pretty DO PGY1 Internal Medicine Landscape Specialist - Hospital Progress Note Pt. notified of CT scan results from yesterday. Reports no issue overnight Still having complaints of R leg pain/ weakness. Patient notified importance of PT. Dysarthria has resolved at evaluation today. 12 system ROS otherwise negative at this time Objective - Vital Signs/Intake and Output Vital Signs (last 24 hours): Temp Pulse Resp BP Pulse Ox 98.4 F 59 L 19 98/53 L 93 L 05/03/18 04:00 05/03/18 06:00 05/03/18 04:00 05/03/18 04:00 05/03/18 04:00 Intake and Output: 05/03/18 05/03/18 06:59 18:59 Intake Total 250 Output Total 900 Balance -650 - Medications Medications: Current Medications Acetaminophen (Tylenol 325mg Tab) 650 mg PO Q4H PRN PRN Reason: headache and pain Last Admin: 05/02/18 05:58 Dose: 650 mg Albuterol/Ipratropium (Duoneb 3 Mg/0.5 Mg (3 Ml) Ud) 3 ml IH Q2H PRN PRN Reason: Shortness of Breath Aspirin (Aspirin Chewable) 81 mg PO DAILY [facility] Last Admin: 05/02/18 10:12 Dose: 81 mg Atorvastatin Calcium (Lipitor) 40 mg PO DAILY [facility] Last Admin: 05/02/18 10:12 Dose: 40 mg Carvedilol (Coreg) 6.25 mg PO BID [facility] Last Admin: 05/02/18 18:20 Dose: Not Given Cholecalciferol (Vitamin D) 1,000 intlu PO DAILY [facility] Last Admin: 05/02/18 10:13 Dose: 1,000 intlu Clopidogrel Bisulfate (Plavix) 75 mg PO DAILY [facility] Last Admin: 05/02/18 10:13 Dose: 75 mg Insulin Human Regular (Humulin R Low) 0 units SC ACHS [facility] PRN Reason: Protocol Last Admin: 05/03/18 07:30 Dose: Not Given Levetiracetam (Keppra) 500 mg PO BID [facility] Last Admin: 05/02/18 18:20 Dose: 500 mg Losartan Potassium (Cozaar) 100 mg PO DAILY [facility] Last Admin: 05/02/18 11:01 Dose: 100 mg Meclizine HCl (Antivert) 25 mg PO TID [facility] Last Admin: 05/02/18 18:20 Dose: 25 mg Pantoprazole Sodium (Protonix Ec Tab) 40 mg PO 0600 [facility] Last Admin: 05/03/18 05:49 Dose: 40 mg Vitamin A (Vitamin A & D Oint Ud Foilpak) 1 ea TOP Q2 PRN PRN Reason: Dry mouth - Labs Labs: 05/03/18 05:10 05/03/18 05:10 PT 11.4 SECONDS (9.4-12.5) 04/29/18 14:30 INR 1.00 04/29/18 14:30 APTT 32.5 Seconds (25.1-36.5) 04/29/18 14:30 Physical Exam - Constitutional Appears: Non-toxic, No Acute Distress - Head Exam Head Exam: ATRAUMATIC, NORMOCEPHALIC Additional comments: Right sided facial droop - Eye Exam Eye Exam: EOMI, Normal appearance, PERRL. absent: Conjunctival injection, Nystagmus, Periorbital swelling, Periorbital tenderness, Scleral icterus Pupil Exam: NORMAL ACCOMODATION, PERRL. absent: Fixed, Irregular, Miosis, Mydriatic, Unequal - ENT Exam ENT Exam: Mucous Membranes Moist, Normal External Ear Exam. absent: Mucous Membranes Dry, Normal Oropharynx - Neck Exam Neck exam: Positive for: Full Rom, Normal Inspection. Negative for: Lymphadenopathy, Meningismus, Tenderness, Thyromegaly - Respiratory Exam Respiratory Exam: Clear to Auscultation Bilateral, NORMAL BREATHING PATTERN. absent: Accessory Muscle Use, Chest Wall Tenderness, Decreased Breath Sounds, Prolonged Expiratory Phase, Rales, Rhonchi, Wheezes, Respiratory Distress, Stridor - Cardiovascular Exam Cardiovascular Exam: REGULAR RHYTHM, RRR, +S1, +S2. absent: Bradycardia, Tachycardia, Clicks, Diastolic murmur, Gallop, Irregular Rhythm, JVD, Rubs, +S4 , Systolic Murmur - GI/Abdominal Exam GI & Abdominal Exam: Normal Bowel Sounds, Soft. absent: Bruit, Diminished Bowel Sounds, Distended, Firm, Guarding, Hernia, Hyperactive Bowel Sounds, Hypoactive Bowel Sounds, Mass, Organomegaly, Pulsatile Mass, Rebound, Rigid, Tenderness - Extremities Exam Extremities exam: Decreased ROM in RLE, but could bring leg past midline. Difficulty lifting. Positive for: normal capillary refill, pedal pulses present. Negative for: calf tenderness, joint swelling, normal inspection, pedal edema, tenderness - Back Exam Back exam: FULL ROM, NORMAL INSPECTION. absent: CVA tenderness (L), CVA tenderness (R), muscle spasm, paraspinal tenderness, rash noted, tenderness, vertebral tenderness - Neurological Exam Neurological exam: Alert, Oriented x3 - Expanded Neurological Exam Expanded Patient oriented to: person, place, time, situation Speech: Dyarthria absent on exam today Cranial nerves: Facial Palsy w/Forehead Movement: Abnormal Right Neuro motor strength exam: Left Upper Extremity: 4, Right Upper Extremity: 4, Left Lower Extremity: 4, Right Lower Extremity: 2 Sensation intact in UE and LE bilaterally - Psychiatric Exam Psychiatric exam: Normal Affect, Normal Mood - Skin Skin Exam: Dry, Intact, Normal Color, Warm Assessment and Plan - Assessment and Plan (Free Text) Assessment: 52 year old female with a past medical history significant for previous CVA with residual RLE weakness, seizures, DM2, HTN, ANGIE, asthma, and vertigo who presented with right sided weakness, dysarthria and facial drooping that started 04/29 during an EEG. Plan: Dysarthria vs TIA - Dysarthria is resolved at this time - Repeat CT on 05/02 showed no progression or conversion to hemorrhagic stroke - Initial CT Head showed no intracranial abnormalities - CXR showed no active disease - Given tPA in ED 04/29 - MRA Neck normal - Brain MRI showed no acute abnormality. Mild chronic microangiopathic changes along with mild cerebellar tonsillar ectopia - Repeat Head CT showed no evidence of acute infarct - Speech therapy: mild oral pharyngeal dysphagia w low to mod risk aspiration due to min oral motor weakness - Passed Swallow Study and recommended mechanical soft bite size pieces - continued home PO meds along with dual anti-platelet therapy - NS @ 100 cc/hr - Fall, bleed and Aspiration precautions - Transfer to telemetry - Neurology and Cardiology consulted, all recommendations appreciated - f/u Echo w bubble study to rule out PFO due to recurrent CVAs per cardiology ( Dr. Lowery) History of Seizures - Keppra 500mg PO BID - Nonepileptic seizure observed yesterday; will continue monitoring - Seizure precautions - Will continue to monitor Hypokalemia Repleted today Recheck in AM History of DM2 - ISS-Low and Accuchecks ACHS - A1c 5.8 - lipid panel wnl History of Asthma -Duonebs Q2 PRN - will monitor Hx of HTN - Patient has with minimal hypotension today -DC'd HCTZ, and Amlodipine -Holding parameters on Cozaaar 100 QD -Holding parameters on Coreg 6.25 BID -Will monitor GI Prophylaxis: Protonix 40 PO DVT Prophylaxis: SCD's Disposition: F/u PT recommendations regarding rehab and placement Patient seen, case reviewed, and plan discussed with Dr. Jewell. Niels Pretty DO - PGY1 Internal Medicine Landscape Specialist - Pager [phone] <Yin Jewell - Last Filed: 05/03/18 12:04> Objective - Vital Signs/Intake and Output Vital Signs (last 24 hours): Temp Pulse Resp BP Pulse Ox 98.4 F 68 19 117/79 93 L 05/03/18 04:00 05/03/18 10:09 05/03/18 04:00 05/03/18 10:09 05/03/18 04:00 Intake and Output: 05/03/18 05/03/18 06:59 18:59 Intake Total 250 Output Total 900 Balance -650 - Medications Medications: Current Medications Acetaminophen (Tylenol 325mg Tab) 650 mg PO Q4H PRN PRN Reason: headache and pain Last Admin: 05/02/18 05:58 Dose: 650 mg Albuterol/Ipratropium (Duoneb 3 Mg/0.5 Mg (3 Ml) Ud) 3 ml IH Q2H PRN PRN Reason: Shortness of Breath Aspirin (Aspirin Chewable) 81 mg PO DAILY [facility] Last Admin: 05/03/18 10:10 Dose: 81 mg Atorvastatin Calcium (Lipitor) 40 mg PO DAILY [facility] Last Admin: 05/03/18 10:10 Dose: 40 mg Carvedilol (Coreg) 6.25 mg PO BID [facility] Cholecalciferol (Vitamin D) 1,000 intlu PO DAILY [facility] Last Admin: 05/03/18 10:09 Dose: 1,000 intlu Clopidogrel Bisulfate (Plavix) 75 mg PO DAILY [facility] Last Admin: 05/03/18 10:09 Dose: 75 mg Insulin Human Regular (Humulin R Low) 0 units SC ACHS [facility] PRN Reason: Protocol Last Admin: 05/03/18 07:30 Dose: Not Given Levetiracetam (Keppra) 500 mg PO BID [facility] Last Admin: 05/03/18 10:10 Dose: 500 mg Losartan Potassium (Cozaar) 100 mg PO DAILY [facility] Meclizine HCl (Antivert) 25 mg PO TID [facility] Last Admin: 05/02/18 18:20 Dose: 25 mg Pantoprazole Sodium (Protonix Ec Tab) 40 mg PO 0600 [facility] Last Admin: 05/03/18 05:49 Dose: 40 mg Vitamin A (Vitamin A & D Oint Ud Foilpak) 1 ea TOP Q2 PRN PRN Reason: Dry mouth - Labs Labs: 05/03/18 05:10 05/03/18 05:10 PT 11.4 SECONDS (9.4-12.5) 04/29/18 14:30 INR 1.00 04/29/18 14:30 APTT 32.5 Seconds (25.1-36.5) 04/29/18 14:30 Attending/Attestation - Attestation I have personally seen and examined this patient.: Yes I have fully participated in the care of the patient.: Yes I have reviewed all pertinent clinical information, including history, physical exam and plan: Yes Notes (Text): 05/03/18 12:02 Medical record note made by the resident after discussion with my direction and input after the patient was personally seen and examined by me. I have reviewed the chart and agree that the record accurately reflects by personal performance of the history, physical exam, data review, and medical decision-making, in the course for the patient. I have also personally directed the plan of care. 52 Yrs Female with PMH of significant for previous CVA with residual Right Lower extremity weakness, seizure disorder, DM2, HTN, ANGIE, asthma, and vertigo was admitted with worsening of right lower extremity weakness and dysarthria , patient was in her Neurologist office at that time. CT head was negative. Patient was given TPA, Repeat CT can of head and MRI of brain today is negative for acute infarct.MRA of neck is unremarkable.. Dysarthia is resolved. Right lower extremity weakness is persistent. Echo was reviewed. There is no PFO or cardiac thrombus. Patient has been restarted on her Aspirin and Plavix. Patient blood pressure was running low, HCTZ and amlodipine is discontinued.We will monitor and adjust medication. Management plan was discussed in detail with patient. Education was provided
[2018-05-03] MEDS: Cholecalciferol 1,000 INTLU TAB PO SCH (10:09)
[2018-05-04 02:13] VITALS: RESP 20; O2SAT 98
[2018-05-04] MEDS: Pantoprazole 40 mg EC Tab PO SCH (05:29)
[2018-05-04 07:04] LABS: BASO # 0.03 K/mm3 (0.0-2.0); BASO % 0.5 % (0.0-3.0); EOS # 0.1 (0.0-0.7); EOS % 2.2 % (1.5-5.0); GRAN # 3.28 (1.4-6.5); GRAN % 54.3 % (50.0-68.0); HEMOGLOBIN 11.8 g/dL (12.0-16.0); LYMPH % 33.6 % (22.0-35.0); MEAN CELL VOLUME 76.9 fl (80.0-105.0); MEAN CORPUSCULAR HEMOGLOBIN 24.8 pg (25.0-35.0); MEAN CORPUSCULAR HGB CONC 32.2 g/dl (31.0-37.0); MEAN PLATELET VOLUME 9.6 fl (7.0-11.0); MONO # 0.6 (0.1-0.6); MONO % 9.4 % (1.0-6.0); RBC 4.76 10^6/uL (3.5-6.1); RED CELL DISTRIBUTION WIDTH 15.6 % (11.5-14.5)
[2018-05-04 07:14] LABS: ALB/GLOB RATIO 1.3 (1.1-1.8); ALBUMIN 3.8 g/dL (3.0-4.8); ALT/SGPT 32 U/L (7-56); AST/SGOT 27 U/L (14-36); BLOOD UREA NITROGEN 14 mg/dL (7-21); CALCIUM 8.8 mg/dL (8.4-10.5); GFR AFRICAN-AMERICAN > 60; GFR NON-AFRICAN AMERICAN > 60
--- NOTE | 2018-05-04 07:24 | CP.PCM.PN ---
Subjective - Date & Time of Evaluation Date of Evaluation: 05/04/18 Time of Evaluation: 06:25 - Subjective Subjective: Awake, alert, no distress Reason for consultation and follow up:Cardiac evaluation of new CVA post TPA, History of CVA with residual right leg weakness, seizures, hypertension, asthma , vertigo Seen and examined by me and Dr. Lowery Objective - Vital Signs/Intake and Output Vital Signs (last 24 hours): Temp Pulse Resp BP Pulse Ox 97.8 F 71 20 104/62 98 05/04/18 06:00 05/04/18 06:00 05/04/18 06:00 05/04/18 06:00 05/04/18 06:00 Intake and Output: 05/04/18 05/04/18 06:59 18:59 Intake Total 1020 Output Total 751 Balance 269 - Medications Medications: Current Medications Acetaminophen (Tylenol 325mg Tab) 650 mg PO Q4H PRN PRN Reason: headache and pain Last Admin: 05/02/18 05:58 Dose: 650 mg Albuterol/Ipratropium (Duoneb 3 Mg/0.5 Mg (3 Ml) Ud) 3 ml IH Q2H PRN PRN Reason: Shortness of Breath Aspirin (Aspirin Chewable) 81 mg PO DAILY [facility] Last Admin: 05/03/18 10:10 Dose: 81 mg Atorvastatin Calcium (Lipitor) 40 mg PO DAILY [facility] Last Admin: 05/03/18 10:10 Dose: 40 mg Carvedilol (Coreg) 6.25 mg PO BID [facility] Last Admin: 05/03/18 18:08 Dose: Not Given Cholecalciferol (Vitamin D) 1,000 intlu PO DAILY [facility] Last Admin: 05/03/18 10:09 Dose: 1,000 intlu Clopidogrel Bisulfate (Plavix) 75 mg PO DAILY [facility] Last Admin: 05/03/18 10:09 Dose: 75 mg Insulin Human Regular (Humulin R Low) 0 units SC ACHS [facility] PRN Reason: Protocol Last Admin: 05/03/18 22:51 Dose: Not Given Levetiracetam (Keppra) 500 mg PO BID [facility] Last Admin: 05/03/18 18:12 Dose: 500 mg Losartan Potassium (Cozaar) 100 mg PO DAILY [facility] Meclizine HCl (Antivert) 25 mg PO TID [facility] Last Admin: 05/03/18 18:12 Dose: 25 mg Pantoprazole Sodium (Protonix Ec Tab) 40 mg PO 0600 ROXANNA Last Admin: 05/04/18 05:29 Dose: 40 mg Vitamin A (Vitamin A & D Oint Ud Foilpak) 1 ea TOP Q2 PRN PRN Reason: Dry mouth - Labs Labs: 05/04/18 06:00 05/04/18 06:00 PT 11.4 SECONDS (9.4-12.5) 04/29/18 14:30 INR 1.00 04/29/18 14:30 APTT 32.5 Seconds (25.1-36.5) 04/29/18 14:30 - Constitutional Appears: No Acute Distress - Eye Exam Eye Exam: Normal appearance - Respiratory Exam Respiratory Exam: Decreased Breath Sounds, NORMAL BREATHING PATTERN - Cardiovascular Exam Cardiovascular Exam: REGULAR RHYTHM, +S1, +S2 - GI/Abdominal Exam GI & Abdominal Exam: Soft, Normal Bowel Sounds - Extremities Exam Extremities Exam: Normal Capillary Refill Additional comments: residual right leg weakness - Neurological Exam Neurological Exam: Alert, Awake, Oriented x3 - Psychiatric Exam Psychiatric exam: Normal Affect - Skin Skin Exam: Dry, Intact, Warm Assessment and Plan - Assessment and Plan (Free Text) Assessment: A 52 year old female who came in to the ER due to right sided weakness,TPA was given. History of previous CVA with residual right leg weakness, seizures, diabetes,hypertension, obstructive sleep apnea,vertigo, hypertension, hyperlipidemia.she was admitted to ICU ,now in telemetry. Plan: Cardiac status stable Controlled heart rate and blood pressure Telemetry NSR- 70's Denies complaints, On ASA 81 mg daily,Lipitor 40 mg daily, Coreg 6.25 mg BID,Plavix 75 mg daily Keppra 500 mg BID, antivert 25 mg TID Neuro on consult Continue current treatment Continue current medications Physical therapy Aspiration precaution Fall precaution Will follow up Plan and treatment discussed with Dr. Lowery
[2018-05-04] MEDS: Insulin Reg-LOW-Coverage SC SCH (09:09)
[2018-05-04] MEDS: Cholecalciferol 1,000 INTLU TAB PO SCH (09:18)
[2018-05-04 12:33] VITALS: BP 107/71; PULSE 86; TEMP 99
[2018-05-04] MEDS ORDERED: Potassium Chloride 20 mEq ER Tab PO ONE (14:04)
--- NOTE | 2018-05-04 19:08 | CP.PCM.DIS ---
<Junior Casillas - Last Filed: 05/05/18 11:13> Provider - Provider Date of Admission: 04/29/18 16:38 Attending physician: Zuly Cosme MD Time Spent in preparation of Discharge (in minutes): 45 Diagnosis - Discharge Diagnosis (1) CVA (cerebral vascular accident) Status: Resolved Priority: Medium (2) Dysarthria Status: Resolved Priority: Medium (3) Seizure Status: Chronic Priority: Medium (4) Hypokalemia Status: Resolved Priority: Low (5) Diabetes mellitus Status: Chronic Priority: Medium (6) Asthma Status: Chronic Priority: Medium (7) HTN (hypertension) Status: Chronic Priority: Medium Hospital Course - Lab Results Lab Results: Micro Results 04/29/18 18:45 Nose MRSA Culture (Admit) - Final MRSA NOT DETECTED Most Recent Lab Values WBC 6.0 10^3/ul (4.5-11.0) 05/04/18 06:00 RBC 4.76 10^6/uL (3.5-6.1) 05/04/18 06:00 Hgb 11.8 g/dL (12.0-16.0) L 05/04/18 06:00 Hct 36.6 % (36.0-48.0) 05/04/18 06:00 MCV 76.9 fl (80.0-105.0) L 05/04/18 06:00 MCH 24.8 pg (25.0-35.0) L 05/04/18 06:00 MCHC 32.2 g/dl (31.0-37.0) 05/04/18 06:00 RDW 15.6 % (11.5-14.5) H 05/04/18 06:00 Plt Count 323 10^3/uL (120.0-450.0) 05/04/18 06:00 MPV 9.6 fl (7.0-11.0) 05/04/18 06:00 Gran % 54.3 % (50.0-68.0) 05/04/18 06:00 Lymph % (Auto) 33.6 % (22.0-35.0) 05/04/18 06:00 Craven % (Auto) 9.4 % (1.0-6.0) H 05/04/18 06:00 Eos % (Auto) 2.2 % (1.5-5.0) 05/04/18 06:00 Baso % (Auto) 0.5 % (0.0-3.0) 05/04/18 06:00 Gran # 3.28 (1.4-6.5) 05/04/18 06:00 Lymph # (Auto) 2.0 (1.2-3.4) 05/04/18 06:00 Craven # (Auto) 0.6 (0.1-0.6) 05/04/18 06:00 Eos # (Auto) 0.1 (0.0-0.7) 05/04/18 06:00 Baso # (Auto) 0.03 K/mm3 (0.0-2.0) 05/04/18 06:00 PT 11.4 SECONDS (9.4-12.5) 04/29/18 14:30 INR 1.00 04/29/18 14:30 APTT 32.5 Seconds (25.1-36.5) 04/29/18 14:30 Sodium 146 mmol/L (132-148) 05/04/18 06:00 Potassium 3.8 mmol/L (3.6-5.0) 05/04/18 06:00 Chloride 107 mmol/L (98-107) 05/04/18 06:00 Carbon Dioxide 28 mmol/L (21-33) 05/04/18 06:00 Anion Gap 15 (10-20) 05/04/18 06:00 BUN 14 mg/dL (7-21) 05/04/18 06:00 Creatinine 0.7 mg/dl (0.7-1.2) 05/04/18 06:00 Est GFR ( Amer) > 60 05/04/18 06:00 Est GFR (Non-Af Amer) > 60 05/04/18 06:00 POC Glucose (mg/dL) 88 mg/dL (65-110) 05/04/18 07:49 Random Glucose 99 mg/dL (70-110) 05/04/18 06:00 Hemoglobin A1c 5.8 % (4.2-6.5) 04/29/18 14:30 Calcium 8.8 mg/dL (8.4-10.5) 05/04/18 06:00 Phosphorus 4.4 mg/dL (2.5-4.5) 05/04/18 06:00 Magnesium 1.9 mg/dL (1.7-2.2) 05/02/18 05:00 Total Bilirubin 0.7 mg/dL (0.2-1.3) 05/04/18 06:00 AST 27 U/L (14-36) 05/04/18 06:00 ALT 32 U/L (7-56) 05/04/18 06:00 Alkaline Phosphatase 73 U/L (38-126) 05/04/18 06:00 Troponin I 0.01 ng/mL 04/29/18 14:30 Total Protein 6.7 g/dL (5.8-8.3) 05/04/18 06:00 Albumin 3.8 g/dL (3.0-4.8) 05/04/18 06:00 Globulin 2.9 gm/dL 05/04/18 06:00 Albumin/Globulin Ratio 1.3 (1.1-1.8) 05/04/18 06:00 Triglycerides 60 mg/dL (35-160) 04/30/18 18:14 Cholesterol 109 mg/dL (130-200) L 04/30/18 18:14 LDL Cholesterol Direct 45 mg/dL (0-129) 04/30/18 18:14 HDL Cholesterol 39 mg/dL (29-60) 04/30/18 18:14 Free T4 0.99 ng/dL (0.78-2.19) 04/30/18 18:14 TSH 3rd Generation 1.28 mIU/mL (0.46-4.68) 04/30/18 18:14 Blood Type O POSITIVE 04/29/18 14:30 Blood Type Confirm O POSITIVE 04/30/18 18:14 Antibody Screen Negative 04/29/18 14:30 BBK History Checked No verified bt 04/29/18 14:30 - Hospital Course Hospital Course: Ms. Preciado is a 52 year old female with a past medical history significant for previous CVA with residual RLE weakness, seizures, DM2, HTN, ANGIE, asthma, and vertigo who presented with right sided weakness, dysarthria and facial drooping that started 04/29 during an EEG. Patient was a code stroke in the ED and tPA was administered. Patient was treated with aspirin, plavix, duoneb, lipitor, coreg, vitamin D, insulin, keppra, cozaar, antivert, and protonix. During the course of her hospital stay, patient got an EKG that showed normal sinus rhythm at 78 bpm and no ischemia. Chest xray showed no acute disease. Head CT showed no acute intracranial hemorrhage. 2D echo showed LVEF of 60-65%. Brain MRI showed no acute disease. Neck MRA was normal. Neurology (Dr. Ware) was consulted and concluded that despite presentation similar to CVA, MRI showed no evidence of an acute or early subacute infarction. Patient was instructed to resume all home medications as prescribed. Physical therapy treated her while in the hospital and recommended that she goes to a sub-acute rehab for her right foot drop. However, the patient refused to go to rehab and wanted to continue home physical therapy. Patient was instructed to use her home orthotic boot and to follow up with outpatient orthopedics. Patient was educated numerous times to go to sub-acute rehab but adamantly refused. She was also instructed to follow up with primary doctor (Dr. Lovett) within 3-5 days and with neurologist (Dr. Purdy) within 1-2 weeks after discharge. Patient was instructed to resume activities as tolerated and continue with home physical therapy. Patient further informed to return to the ED for worsening or newly concerning symptoms. Patient is now medically stable for discharge. Discharge Exam - Head Exam Head Exam: NORMAL INSPECTION - Eye Exam Eye Exam: EOMI, Normal appearance, PERRL - ENT Exam ENT Exam: Mucous Membranes Moist - Respiratory Exam Respiratory Exam: Clear to PA & Lateral. absent: Rales, Rhonchi, Wheezes - Cardiovascular Exam Cardiovascular Exam: REGULAR RHYTHM, +S1, +S2. absent: Gallop, Rubs, Systolic Murmur - GI/Abdominal Exam GI & Abdominal Exam: Normal Bowel Sounds, Soft. absent: Tenderness - Extremities Exam Additional comments: no calf tenderness of pedal edema - Neurological Exam Neurological exam: Alert, CN II-XII Intact, Oriented x3 Additional comments: muscle strength 5/5 bilateral upper extremities and left lower extremity, 4/5 on right leg, 4/5 right plantarflexion. - Psychiatric Exam Psychiatric exam: Normal Affect, Normal Mood - Skin Skin Exam: Dry, Intact, Warm Discharge Plan - Follow Up Plan Condition: FAIR Disposition: HOME/ ROUTINE Instructions: Type 2 Diabetes, High Blood Pressure (DC), Stroke (DC), Right- Side Stroke (DC), Stroke Rehab Exercises Additional Instructions: 1. Please resume all home medications as previously prescribed 2. Please follow up with your primary care doctor (Dr. Lovett) within one week of discharge 3. Please follow up with your neurologist (Dr. Purdy) within 1 or 2 weeks of discharge 4. Continue to work with home physical therapy 5. Return to the nearest emergency room if you experience worsening or newly concerning symptoms Referrals: Trent Lovett MD [Medical Doctor] - <Zuly Cosme - Last Filed: 05/05/18 12:26> Provider - Provider Date of Admission: 04/29/18 16:38 Attending physician: Zuly Cosme MD Hospital Course - Lab Results Lab Results: Micro Results 04/29/18 18:45 Nose MRSA Culture (Admit) - Final MRSA NOT DETECTED Most Recent Lab Values WBC 6.0 10^3/ul (4.5-11.0) 05/04/18 06:00 RBC 4.76 10^6/uL (3.5-6.1) 05/04/18 06:00 Hgb 11.8 g/dL (12.0-16.0) L 05/04/18 06:00 Hct 36.6 % (36.0-48.0) 05/04/18 06:00 MCV 76.9 fl (80.0-105.0) L 05/04/18 06:00 MCH 24.8 pg (25.0-35.0) L 05/04/18 06:00 MCHC 32.2 g/dl (31.0-37.0) 05/04/18 06:00 RDW 15.6 % (11.5-14.5) H 05/04/18 06:00 Plt Count 323 10^3/uL (120.0-450.0) 05/04/18 06:00 MPV 9.6 fl (7.0-11.0) 05/04/18 06:00 Gran % 54.3 % (50.0-68.0) 05/04/18 06:00 Lymph % (Auto) 33.6 % (22.0-35.0) 05/04/18 06:00 Craven % (Auto) 9.4 % (1.0-6.0) H 05/04/18 06:00 Eos % (Auto) 2.2 % (1.5-5.0) 05/04/18 06:00 Baso % (Auto) 0.5 % (0.0-3.0) 05/04/18 06:00 Gran # 3.28 (1.4-6.5) 05/04/18 06:00 Lymph # (Auto) 2.0 (1.2-3.4) 05/04/18 06:00 Craven # (Auto) 0.6 (0.1-0.6) 05/04/18 06:00 Eos # (Auto) 0.1 (0.0-0.7) 05/04/18 06:00 Baso # (Auto) 0.03 K/mm3 (0.0-2.0) 05/04/18 06:00 PT 11.4 SECONDS (9.4-12.5) 04/29/18 14:30 INR 1.00 04/29/18 14:30 APTT 32.5 Seconds (25.1-36.5) 04/29/18 14:30 Sodium 146 mmol/L (132-148) 05/04/18 06:00 Potassium 3.8 mmol/L (3.6-5.0) 05/04/18 06:00 Chloride 107 mmol/L (98-107) 05/04/18 06:00 Carbon Dioxide 28 mmol/L (21-33) 05/04/18 06:00 Anion Gap 15 (10-20) 05/04/18 06:00 BUN 14 mg/dL (7-21) 05/04/18 06:00 Creatinine 0.7 mg/dl (0.7-1.2) 05/04/18 06:00 Est GFR ( Amer) > 60 05/04/18 06:00 Est GFR (Non-Af Amer) > 60 05/04/18 06:00 POC Glucose (mg/dL) 88 mg/dL (65-110) 05/04/18 07:49 Random Glucose 99 mg/dL (70-110) 05/04/18 06:00 Hemoglobin A1c 5.8 % (4.2-6.5) 04/29/18 14:30 Calcium 8.8 mg/dL (8.4-10.5) 05/04/18 06:00 Phosphorus 4.4 mg/dL (2.5-4.5) 05/04/18 06:00 Magnesium 1.9 mg/dL (1.7-2.2) 05/02/18 05:00 Total Bilirubin 0.7 mg/dL (0.2-1.3) 05/04/18 06:00 AST 27 U/L (14-36) 05/04/18 06:00 ALT 32 U/L (7-56) 05/04/18 06:00 Alkaline Phosphatase 73 U/L (38-126) 05/04/18 06:00 Troponin I 0.01 ng/mL 04/29/18 14:30 Total Protein 6.7 g/dL (5.8-8.3) 05/04/18 06:00 Albumin 3.8 g/dL (3.0-4.8) 05/04/18 06:00 Globulin 2.9 gm/dL 05/04/18 06:00 Albumin/Globulin Ratio 1.3 (1.1-1.8) 05/04/18 06:00 Triglycerides 60 mg/dL (35-160) 04/30/18 18:14 Cholesterol 109 mg/dL (130-200) L 04/30/18 18:14 LDL Cholesterol Direct 45 mg/dL (0-129) 04/30/18 18:14 HDL Cholesterol 39 mg/dL (29-60) 04/30/18 18:14 Free T4 0.99 ng/dL (0.78-2.19) 04/30/18 18:14 TSH 3rd Generation 1.28 mIU/mL (0.46-4.68) 04/30/18 18:14 Blood Type O POSITIVE 04/29/18 14:30 Blood Type Confirm O POSITIVE 04/30/18 18:14 Antibody Screen Negative 04/29/18 14:30 BBK History Checked No verified bt 04/29/18 14:30 Attending/Attestation - Attestation I have personally seen and examined this patient.: Yes I have fully participated in the care of the patient.: Yes I have reviewed all pertinent clinical information, including history, physical exam and plan: Yes Notes (Text): 05/04/18 52 year old female with past medical history of CVA with residual right lower extremity weakness, seizure disorder, diabetes and hypertension who presented with complaint of worsening right lower extremity weakness and dysarthria. CT head was negative. She was given TPA. Repeat CT head and MRI brain were negative for acute infarct. MRI neck was unremarkable. She was seen by neurology. Dysarthria resolved and right leg weakness is baseline as per patient. She was seen by PT who recommended WATSON, however patient refused WATSON preferring to go home with services since she is at her baseline. While in hospital her bp was running low normal so her HCTZ and norvasc were held. She is on aspirin, plavix and statin. She is on keppra for seizure history. Patient is discharged home with home services. Follow up with pmd and neurologist. Hold HCTZ and norvasc for now and monitor BP at home and with pmd. Zuly Cosme MD Hospitalist.
== END 2018-05-04 16:54 | disposition home or self-care (01) | DRG 880 ==
LOC: ED 15:16 → ERH 16:38 → MERGE 16:38 → CCU 18:30 → 2RNO 05-03 21:17
PROVIDERS: ADMIT Internal Medicine; ATTEND Internal Medicine
DX: I63.9 Cerebral infarction, unspecified (principal); E11.69 Type 2 diabetes mellitus with other specified complication; E87.6 Hypokalemia; J44.9 Chronic obstructive pulmonary disease, unspecified; I69.351 Hemiplegia and hemiparesis following cerebral infarction affecting right dominant side; E66.01 Morbid (severe) obesity due to excess calories; E78.5 Hyperlipidemia, unspecified; G40.909 Epilepsy, unspecified, not intractable, without status epilepticus; G47.33 Obstructive sleep apnea (adult) (pediatric); I10 Essential (primary) hypertension; M21.371 Foot drop, right foot; R29.810 Facial weakness; Z79.82 Long term (current) use of aspirin; R47.1 Dysarthria and anarthria; R40.2412 Glasgow coma scale score 13-15, at arrival to emergency department